=== PATIENT | male | born 1955 | race American Indian/Alaskan Native ===

== ENCOUNTER 2016-07-25 17:38 | Emergency (ER) | payer MEDICARE ==
[2016-07-25 18:12] VITALS: BP 125/75
--- NOTE | 2016-07-25 18:15 | Emergency Department Report ---
Chief Complaint: Pain General Stated Complaint: SEVERE RECTAL PAIN POSS INFECTION Time Seen by Provider: 07/25/16 18:11 - HPI History of Present Illness: PT c/o rectal pain x 1 week. Pt states his told him that he has a swollen area. PT states the pain is swelling - ROS Review of Systems: + rectal pain + nausea - fever - Exam Vital Signs: Vital Signs 07/25/16 18:02 Temperature 99.0 F Pulse Rate 80 Respiratory 20 Rate Blood Pressure 125/75 O2 Sat by Pulse 96 Oximetry Physical Exam: pt looks well, non toxic area of pain not evaluated in triage MSE screening note: Focused history and physical exam performed. Due to findings the following was ordered: labs ED Disposition for MSE Condition: Stable
[2016-07-25 18:46] LABS: Bilirubin,Urine NEG (Negative); Blood,Urine NEG (Negative); Ketones,Urine NEG (Negative); Leukocyte Esterase,Urine NEG (Negative); Mucus,Urine FEW /HPF; Nitrite,Urine NEG (Negative); Protein,Urine <15 mg/dL mg/dL (Negative); Urobilinogen,Urine < 2.0 mg/dL (<2.0)
--- NOTE | 2016-07-26 17:46 | ED Elopement Review ---
ED Pt Elopement review - Results review Lab results: Laboratory Tests 07/25/16 18:17 Urine Color Yellow Urine Turbidity Clear Urine pH 6.0 Ur Specific [place] 1.025 Urine Protein <15 mg/dl Urine Glucose (UA) Neg Urine Ketones Neg Urine Blood Neg Urine Nitrite Neg Urine Bilirubin Neg Urine Urobilinogen < 2.0 Ur Leukocyte Esterase Neg Urine WBC (Auto) 1.0 Urine RBC (Auto) 3.0 U Epithel Cells (Auto) < 1.0 Urine Mucus Few - Call Back decision Pt Call Back Decision: No action required
== END 2016-07-25 19:10 | disposition left against medical advice (07) ==
LOC: ED 17:38
DX: R10.2 Pelvic and perineal pain (principal); K62.89 Other specified diseases of anus and rectum; Z53.21 Procedure and treatment not carried out due to patient leaving prior to being seen by health care provider
CPT/HCPCS: 81001

== ENCOUNTER 2016-10-31 12:29 | Emergency (ER) | payer OTHER, MEDICARE ==
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
[2016-10-31 16:09] VITALS: BP 126/78
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
== END 2016-10-31 16:52 | disposition home or self-care (01) ==
LOC: ED 12:29
DX: S16.1XXA Strain of muscle, fascia and tendon at neck level, initial encounter (principal); M51.36 Other intervertebral disc degeneration, lumbar region; S39.012A Strain of muscle, fascia and tendon of lower back, initial encounter; V40.0XXA Car driver injured in collision with pedestrian or animal in nontraffic accident, initial encounter; Y93.89 Activity, other specified; Y99.8 Other external cause status; Y92.488 Other paved roadways as the place of occurrence of the external cause; Z88.0 Allergy status to penicillin
CPT/HCPCS: 72040; 72100; 99283

== ENCOUNTER 2017-09-17 07:31 | Observation (INO) | payer MEDICARE ==
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
--- NOTE | 2017-09-17 08:23 | XRay Report ---
AP CHEST: HISTORY: Dyspnea Mild cardiomegaly and pulmonary venous congestion are identified which have increased since 02/05/15. Single lead pacemaker device terminates in the right ventricle which is unchanged. The lungs are clear. No evidence for pneumonia, CHF or pneumothorax. IMPRESSION: Mild cardiomegaly and pulmonary venous congestion.
[2017-09-17 08:43] LABS: Basophils % (Auto) 0.2 % (0.0-1.8); Eosinophils % (Auto) 0.5 % (0.0-4.3); Hematocrit 39.7 % (35.5-45.6); Hemoglobin 13.3 gm/dl (11.8-15.2); Lymphocytes % (Auto) 26.7 % (13.4-35.0); Mean Corpuscular HGB Conc 34 % (32-34); Mean Corpuscular Hemoglobin 28 pg (28-32); Mean Corpuscular Volume 82 fl (84-94); Monocytes # (Auto) 0.3 K/mm3 (0.0-0.8); Monocytes % (Auto) 3.7 % (0.0-7.3); Platelet Count 205 K/mm3 (140-440); Red Blood Count 4.86 M/mm3 (3.65-5.03); Red Cell Distribution Width 15.7 % (13.2-15.2)
[2017-09-17 08:51] LABS: Creatine Kinase MB 2.8 ng/mL (0.0-4.0)
[2017-09-17 08:53] LABS: INR 0.95 (0.87-1.13)
[2017-09-17 08:54] LABS: Alanine Aminotransferase 13 units/L (7-56); Albumin 3.6 g/dL (3.9-5); BUN/Creatinine Ratio 18; Blood Urea Nitrogen 22 mg/dL (9-20); Hemolysis Index 17; Partial Thromboplastin Time 31.5 Sec. (24.2-36.6)
[2017-09-17] MEDS ORDERED: D50W (25GM) Syringe IV PRN (11:41)
[2017-09-17] MEDS ORDERED: MORPHINE IV PRN (11:47)
[2017-09-17] MEDS ORDERED: PROVENTIL IH PRN (11:47)
[2017-09-17] MEDS ORDERED: ZOFRAN IV PRN (11:47)
[2017-09-17] MEDS ORDERED: NORCO 5/325 PO PRN (11:47)
[2017-09-17] MEDS ORDERED: TYLENOL PO PRN (11:47)
[2017-09-17] MEDS ORDERED: NITROSTAT SL PRN (11:48)
[2017-09-17] MEDS ORDERED: LASIX IV SCH (12:00)
--- NOTE | 2017-09-17 12:01 | History and Physical Report ---
History of Present Illness Date of examination: 09/17/17 Chief complaint: SOB and CP History of present illness: Mr. Singh is a 61 yo yo man with a history of dm type 2, htn, dlp, oa neck/ back, chf with cmp s/p AICD, bph, asthma, marylu w/o cpap and prostate cancer s/p xrt 2015 who presents with sudden onset of acute severe constant sob this morning around 5:30am while going to the bathroom associated with substernal severe nonradiating chest tighness with nonproductive cough. He used an inhaler and took one old prednisone tablet which made chest worse. There is no aggravating factors but the ntg given by EMS did help ease the chest pains. The chest pains lasted more than 1 hours and had resolved when he arrived to the ED. PCP is Dr. Med Cool, affiliated with [facility] in [place], [place]. Wire Frame Dipper is Dr. Montiel. Stess test was 1 year ago. Cardiac cath was back in 2014 before AICD implanted. Interesting to note, he tells me that his heart problem started in 2009 after cpap mask was contaminated leading to heart troubles and ICU admission. PMH: as hpi PSH: aicd, cardiac cath SH: never tob smoker, no etoh or illegal drugs, former garbage truck helper, at bedside FH: father had dm, hypertension and age 56yo which maybe have been heart related per pt Mother in 1972 due to scarlet fever ROS: Constitutional: + fever of 100.4 last week ENT: denies: throat +chronic neck pains Respiratory: + cough, shortness of breath Cardiovascular: + chest pain Endocrine: denies unexplained weight loss or gain Gastrointestinal: denies: abdominal pain, nausea Genitourinary: denies: dysuria +polyuria Rectal: denies no incontinence, no bleeding, no itching, no discharge Musculoskeletal: denies swelling, myaglia, muscle weakness Skin: denies: rash except chronic nodules on back Neurological: denies: headache Hematological/Lymphatic: denies: easy bleeding or easy bruising Allergic/Immunologic: no urticaria, no allergic rhinitis, no anaphylaxis Psych: denies sadness or hopelessness, SI/HI Medications and Allergies Allergies Allergy/AdvReac Type Severity Reaction Status Date / Time penicillin AdvReac Rash Verified 07/25/15 10:42 Home Medications Medication Instructions Recorded Confirmed Last Taken Type Aspirin [Aspirin BABY CHEW TAB] 81 mg PO QDAY 10/27/14 09/17/17 09/16/17 History Carvedilol [Coreg] 12.5 mg PO DAILY 10/27/14 09/17/17 09/16/17 History Spironolactone 25 mg PO DAILY 10/27/14 09/17/17 09/16/17 History Tamsulosin [Flomax] 0.8 mg PO QDAY 10/27/14 09/17/17 09/16/17 History glipiZIDE [Glucotrol] 10 mg PO BID 10/27/14 09/17/17 09/16/17 History Aspirin [Aspirin EC] 81 mg PO DAILY 09/17/17 09/17/17 09/16/17 History Lisinopril [Zestril TAB] 40 mg PO QDAY 09/17/17 09/17/17 09/16/17 History Mirabegron [Myrbetriq] 25 mg PO QDAY 09/17/17 09/17/17 09/16/17 History Active Meds: Active Medications Acetaminophen (Tylenol) 650 mg PO Q6H PRN PRN Reason: Non Cardiac Pain or Temp>100.5 Acetaminophen/Hydrocodone Bitart ([place] 5/325) 1 each PO Q4H PRN PRN Reason: Pain, Moderate (4-6) Albuterol (Proventil) 2.5 mg IH Q4HRT PRN PRN Reason: Shortness Of Breath Aspirin (Baby Aspirin) 81 mg PO QDAY [facility] Carvedilol (Coreg) 12.5 mg PO DAILY [facility] Dextrose (D50w (25gm) Syringe) 50 ml IV PRN PRN PRN Reason: Hypoglycemia Furosemide (Lasix) 40 mg IV QDAY [facility] Heparin Sodium (Porcine) (Heparin) 5,000 unit SUB-Q Q8HR [facility] Insulin Human Lispro (Humalog) 0 unit SUB-Q ACHS ISH; Protocol Lisinopril (Zestril) 40 mg PO QDAY [facility] Miscellaneous Medication (Mirabegron [Myrbetriq]) 25 mg PO QDAY [facility] Morphine Sulfate (Morphine) 2 mg IV Q4H PRN PRN Reason: Pain , Severe (7-10) Nitroglycerin (Nitrostat) 0.4 mg SL .Q5MIN PRN PRN Reason: Chest Pain Ondansetron HCl (Zofran) 4 mg IV Q4H PRN PRN Reason: Nausea And Vomiting Pantoprazole Sodium (Protonix) 40 mg PO QDAY [facility] Spironolactone (Aldactone) 25 mg PO DAILY [facility] Tamsulosin HCl (Flomax) 0.8 mg PO QDAY [facility] Exam - Physical Exam Narrative exam: GEN: WDWN, NAD, Awake, Alert, Orientated x 3 HEENT: NCAT, EOMI, PERRL, OP Clear NECK: supple, no adenopathy, no thyromegaly, no JVD CVS/HEART: RRR, normal S1S2, pulses present bilaterally CHEST/LUNGS: diminished, bilateral crackles with rhonchi, Symmetrical chest expansion, good air entry bilaterally GI/Abdomen: soft, NTND, good bowel sounds, no guarding or rebound /Bladder: no suprapubic tenderness, no CVA or paraspinal tenderness EXT/Skin: no c/c/e, no obvious rash, nickel size nodule/cyst like structure x 2 on upper back which are nontender, slightly moveable MSK: FROM x 4 Neuro: CN 2-12 grossly intact, no new focal deficits Psych: calm - Constitutional Vitals: Temp Pulse Resp BP Pulse Ox 98.6 F 99 H 18 140/85 93 09/17/17 08:04 09/17/17 08:04 09/17/17 08:05 09/17/17 08:04 09/17/17 08:05 Results - Labs CBC & Chem 7: 09/17/17 08:08 09/17/17 08:08 Labs: Abnormal lab results 09/17/17 09/17/17 09/17/17 Range/Units 08:08 08:08 08:08 MCV 82 L (84-94) fl RDW 15.7 H (13.2-15.2) % BUN 22 H (9-20) mg/dL Glucose 171 H (75-100) mg/dL Lactic Acid 2.90 H* (0.7-2.0) mmol/L Total Creatine Kinase 256 H (55-170) units/L NT-Pro-B Natriuret Pep (0-900) pg/mL Albumin 3.6 L (3.9-5) g/dL 09/17/17 Range/Units 08:08 MCV (84-94) fl RDW (13.2-15.2) % BUN (9-20) mg/dL Glucose (75-100) mg/dL Lactic Acid (0.7-2.0) mmol/L Total Creatine Kinase (55-170) units/L NT-Pro-B Natriuret Pep 3092 H (0-900) pg/mL Albumin (3.9-5) g/dL Assessment and Plan Mr. Singh is a 61 yo yo man with a history of dm type 2, htn, dlp, oa neck/ back, chf with cmp s/p AICD, bph, asthma, marylu w/o cpap and prostate cancer s/p xrt 2015 who presents with SOB and substernal CP. CXR reported mild cardiomegaly and pulmonary vascular congestion -Acute on chronic systolic heart failure: treat with iv lasix, consult cardiology -Chest pains: ?stress test, will defer to Cardiology, treat with asa/statin/ bblocker and ntg -Suspected Acute hypoxic respiratory failure: continue 2l Oxygen -Type 2 DM: ssi, ada diet, hold sulfylurea pending npo status -Asthma exacerbation: albuterol nebs, hold steroids until ok with Cardiology -DVT prophylaxis: scd and sq heparin
--- NOTE | 2017-09-17 13:32 | Consultation ---
History of Present Illness Consult date: 09/17/17 Requesting physician: MARLENY SANDERS Consult reason: chest pain, known to you History of present illness: The pt is a 61 YO male with a past medical history significant for nonobstructive CAD, cardiomyopathy, AICD in situ, HTN, DM, CKD, prostate cancer s/p radiation. He is followed in our office by Dr. Frank Montiel. He presented with complaints of shortness of breath and dizziness and chest pain. He reports that he was climbing a flight of stairs this morning and that is when he noted his symptoms develop. He almost did not reach the top of the stairs due to his symptoms and felt as though he may "pass out". He sat down and experienced a minimal amount of improvement in his symptoms and his called EMS. He describes his chest pain as a constant midsternal pressure. He reports that his chest pain improved after he received ASA 325mg and SL nitro while en route to ED. On evaluation, he denies any current chest pain. Pt reports that he has been experiencing flu-like symptoms since last Thursday. He denies any palpitations, n/v, diaphoresis or syncope. Echo done 07/2014 showed EF 25-30%, LV mod dilated, LA mildly enlarged. LHC done 08/2014 showed 40% distal LM lesion and 60% proximal LAD stenosis. Both lesions were assessed using FFR with IV Adenosine and were deemed to be hemodynamically insignificant with a combined FFR across both lesions of 0.85, LVEDP elevated at 27 mmHg and ejection fraction of 20% with dilated LV and moderate to severe global hypokinesis. Past History Past Medical History: CAD (nonobstructive), diabetes, hypertension, other (CKD; CMP; prostate CA ) Social history: , lives with family. denies: smoking, alcohol abuse, prescription drug abuse Medications and Allergies Allergies Allergy/AdvReac Type Severity Reaction Status Date / Time penicillin AdvReac Rash Verified 07/25/15 10:42 Home Medications Medication Instructions Recorded Confirmed Last Taken Type Aspirin [Aspirin BABY CHEW TAB] 81 mg PO QDAY 10/27/14 09/17/17 09/16/17 History Carvedilol [Coreg] 12.5 mg PO DAILY 10/27/14 09/17/17 09/16/17 History Spironolactone 25 mg PO DAILY 10/27/14 09/17/1709/16/18 History Tamsulosin [Flomax] 0.8 mg PO QDAY 10/27/14 09/17/17 09/16/17 History glipiZIDE [Glucotrol] 10 mg PO BID 10/27/14 09/17/17 09/16/17 History Aspirin [Aspirin EC] 81 mg PO DAILY 09/17/17 09/17/17 09/16/17 History Lisinopril [Zestril TAB] 40 mg PO QDAY 09/17/17 09/17/17 09/16/17 History Mirabegron [Myrbetriq] 25 mg PO QDAY 09/17/17 09/17/17 09/16/17 History Active Meds: Active Medications Acetaminophen (Tylenol) 650 mg PO Q6H PRN PRN Reason: Non Cardiac Pain or Temp>100.5 Acetaminophen/Hydrocodone Bitart ([place] 5/325) 1 each PO Q4H PRN PRN Reason: Pain, Moderate (4-6) Albuterol (Proventil) 2.5 mg IH Q4HRT PRN PRN Reason: Shortness Of Breath Aspirin (Baby Aspirin) 81 mg PO QDAY [facility] Atorvastatin Calcium (Lipitor) 40 mg PO QHS [facility] Carvedilol (Coreg) 12.5 mg PO DAILY [facility] Dextrose (D50w (25gm) Syringe) 50 ml IV PRN PRN PRN Reason: Hypoglycemia Furosemide (Lasix) 40 mg IV DAILY@0600 [facility] Heparin Sodium (Porcine) (Heparin) 5,000 unit SUB-Q Q8HR [facility] Insulin Human Lispro (Humalog) 0 unit SUB-Q ACHS ISH; Protocol Lisinopril (Zestril) 40 mg PO QDAY [facility] Miscellaneous Medication (Mirabegron [Myrbetriq]) 25 mg PO QDAY [facility] Morphine Sulfate (Morphine) 2 mg IV Q4H PRN PRN Reason: Pain , Severe (7-10) Nitroglycerin (Nitrostat) 0.4 mg SL .Q5MIN PRN PRN Reason: Chest Pain Ondansetron HCl (Zofran) 4 mg IV Q4H PRN PRN Reason: Nausea And Vomiting Pantoprazole Sodium (Protonix) 40 mg PO QDAY [facility] Spironolactone (Aldactone) 25 mg PO DAILY [facility] Tamsulosin HCl (Flomax) 0.8 mg PO QDAY [facility] Review of Systems Constitutional: no weight loss, no weight gain Ears, nose, mouth and throat: no ear pain, no nose pain Cardiovascular: chest pain, lightheadedness, shortness of breath, dyspnea on exertion, high blood pressure, no orthopnea, no palpitations, no rapid/ irregular heart beat, no edema, no syncope Respiratory: cough, shortness of breath, dyspnea on exertion, no congestion, no wheezing, no pain on inspiration Gastrointestinal: no abdominal pain, no nausea, no vomiting, no diarrhea, no constipation, no change in bowel habits Genitourinary Male: no dysuria, no hematuria, no flank pain, no discharge, no urinary frequency, no urinary hesitancy Musculoskeletal: no neck stiffness, no neck pain, no shooting arm pain, no arm numbness/tingling, no low back pain, no shooting leg pain, no leg numbness/ tingling, no redness of joints Integumentary: no rash, no pruritis, no redness, no sores, no wounds Neurological: no head injury, no paralysis, no weakness, no parathesias, no numbness, no tingling, no seizures, no syncope Psychiatric: no anxiety Endocrine: no cold intolerance, no heat intolerance Hematologic/Lymphatic: no easy bruising, no easy bleeding, no lymphadenopathy Allergic/Immunologic: no urticaria, no wheezing, no persistent infections Physical Examination Vital Signs Temp Pulse Resp BP Pulse Ox 98.6 F 99 H 18 140/85 94 09/17/17 08:04 09/17/17 08:04 09/17/17 08:04 09/17/17 08:04 09/17/17 08:04 General appearance: no acute distress HEENT: Positive: PERRL, Normocephaly, Mucus Membranes Moist Neck: Positive: neck supple, trachea midline Cardiac: Positive: Reg Rate and Rhythm, S1/S2 Lungs: Positive: Wheezes Abdomen: Positive: Soft. Negative: Tender Skin: Positive: Clear. Negative: Rash, Wound Musculoskeletal: No Fluid Collection, No Pain, Normal Range of Motion Extremities: Absent: edema Results 09/17/17 08:08 09/17/17 08:08 Cardiac Enzymes 09/17/17 Range/Units 08:08 AST 13 (5-40) units/L CK-MB (CK-2) 2.8 (0.0-4.0) ng/mL Coagulation 09/17/17 Range/Units 08:08 PT 13.2 (12.2-14.9) Sec. INR 0.95 (0.87-1.13) APTT 31.5 (24.2-36.6) Sec. CBC 09/17/17 Range/Units 08:08 WBC 7.6 (4.5-11.0) K/mm3 RBC 4.86 (3.65-5.03) M/mm3 Hgb 13.3 (11.8-15.2) gm/dl Hct 39.7 (35.5-45.6) % Plt Count 205 (140-440) K/mm3 Lymph # 2.0 (1.2-5.4) K/mm3 [place] # 0.3 (0.0-0.8) K/mm3 Eos # 0.0 (0.0-0.4) K/mm3 Baso # 0.0 (0.0-0.1) K/mm3 Comprehensive Metabolic Panel 09/17/17 Range/Units 08:08 Sodium 141 (137-145) mmol/L Potassium 3.8 (3.6-5.0) mmol/L Chloride 105.7 (98-107) mmol/L Carbon Dioxide 27 (22-30) mmol/L BUN 22 H (9-20) mg/dL Creatinine 1.2 (0.8-1.5) mg/dL Glucose 171 H (75-100) mg/dL Calcium 9.0 (8.4-10.2) mg/dL AST 13 (5-40) units/L ALT 13 (7-56) units/L Alkaline Phosphatase 64 (35-129) units/L Total Protein 6.7 (6.3-8.2) g/dL Albumin 3.6 L (3.9-5) g/dL - Imaging and Cardiology Echo: report reviewed (07/2014 showed EF 25-30%, LV mod dilated, LA mildly enlarged.) Cardiac cath: report reviewed (08/2014 showed 40% distal LM lesion and 60% proximal LAD stenosis. Both lesions were assessed using FFR with IV Adenosine and were deemed to be hemodynamically insignificant with a combined FFR across both lesions of 0.85, LVEDP elevated at 27 mmHg and ejection fraction of 20% with dilated LV and moderate to severe global hypokinesis.) EKG: report reviewed, image reviewed EKG interpretations - Telemetry EKG Rhythm: Sinus Rhythm - EKG Sinus rhythms and dysrhythmias: sinus rhythm Repolarization changes or abnormalities: nonspecific abnormality, ST segment, and/or T wave Assessment and Plan Agree with current cardiac regimen. Obtain echo. Plan for lexiscan MPI stress test in AM. NPO after MN. The patient has been seen in conjunction with Dr. Mcmahon who agrees with the assessment and plan of care. - Patient Problems (1) Chest pain Current Visit: Yes Status: Acute Qualifiers: Chest pain type: unspecified Qualified Code(s): R07.9 - Chest pain, unspecified (2) Acute systolic heart failure Current Visit: Yes Status: Acute (3) CAD (coronary artery disease) Current Visit: Yes Status: Chronic (4) Cardiomyopathy Current Visit: Yes Status: Chronic (5) Automatic implantable cardioverter-defibrillator in situ Current Visit: Yes Status: Chronic (6) HTN (hypertension) Current Visit: Yes Status: Chronic (7) Diabetes Current Visit: Yes Status: Chronic (8) CKD (chronic kidney disease) Current Visit: Yes Status: Chronic (9) History of prostate cancer Current Visit: Yes Status: Resolved
[2017-09-17] MEDS: HumaLOG SUB-Q SCH ×2 (17:46→22:31)
[2017-09-18] MEDS ORDERED: MAGNESIUM SULFATE 1 GM in NACL 0.9% 50 ML IV ONE (05:12)
[2017-09-18] MEDS ORDERED: LASIX IV SCH (06:00)
[2017-09-18 07:04] LABS: Hematocrit 36.8 % (35.5-45.6); Hemoglobin 12.1 gm/dl (11.8-15.2); Mean Corpuscular HGB Conc 33 % (32-34); Mean Corpuscular Hemoglobin 27 pg (28-32); Mean Corpuscular Volume 81 fl (84-94); Platelet Count 217 K/mm3 (140-440); Red Blood Count 4.53 M/mm3 (3.65-5.03); Red Cell Distribution Width 15.8 % (13.2-15.2)
[2017-09-18 07:29] LABS: BUN/Creatinine Ratio 19; Blood Urea Nitrogen 21 mg/dL (9-20); Calcium 8.5 mg/dL (8.4-10.2); Chol/HDL Ratio 4.34 %; HDL Cholesterol 41 mg/dL (40-59); Hemolysis Index 3; LDL Cholesterol,Direct 129 mg/dL (50-130)
[2017-09-18] MEDS: HumaLOG SUB-Q SCH (07:53)
[2017-09-18] MEDS ORDERED: LEXISCAN IV ONE ×2 (09:26→09:31)
[2017-09-18] MEDS ORDERED: COREG PO SCH (10:00)
[2017-09-18] MEDS ORDERED: K-DUR PO SCH (10:00)
[2017-09-18] MEDS ORDERED: IMDUR PO SCH (10:00)
[2017-09-18] MEDS ORDERED: BABY ASPIRIN PO SCH (10:00)
[2017-09-18] MEDS ORDERED: ALDACTONE PO SCH (10:00)
[2017-09-18] MEDS ORDERED: ZESTRIL PO SCH (10:00)
[2017-09-18] MEDS ORDERED: NON-FORMULARY (Mirabegron [Myrbetriq] 25 MG) PO SCH (10:00)
[2017-09-18] MEDS ORDERED: PROTONIX PO SCH (10:00)
[2017-09-18] MEDS ORDERED: HEPARIN SUB-Q SCH (14:00)
--- NOTE | 2017-09-18 14:33 | Progress Note ---
Assessment and Plan Cardiac status is stable. He should f/u at our office in 1-2 wks. - Patient Problems (1) Acute HFrEF (heart failure with reduced ejection fraction) Current Visit: Yes Status: Acute (2) CAD (coronary artery disease) Current Visit: Yes Status: Chronic Qualifiers: Coronary Disease-Associated Artery/Lesion type: [place] artery (3) Nonsustained ventricular tachycardia Current Visit: Yes Status: Acute (4) Cardiomyopathy Current Visit: Yes Status: Chronic (5) Automatic implantable cardioverter-defibrillator in situ Current Visit: Yes Status: Chronic (6) HTN (hypertension) Current Visit: Yes Status: Chronic (7) Diabetes Current Visit: Yes Status: Chronic Qualifiers: Diabetes mellitus type: type 2 Subjective Date of service: 09/18/17 Principal diagnosis: CP, Acute HFrEF, CAD, CMP, ICD in situ Interval history: No new complaint. He feels fine. He had a Lexiscan stress MPI this morning which was negative for ischemia. He had brief runs of Nonsustained VT during the night. Objective Vital Signs Temp Pulse Resp BP BP Pulse Ox 09/18/17 13:09 93 H 139/79 88 09/18/17 12:21 94 H 145/94 09/18/17 12:20 94 H 145/94 09/18/17 09:53 99 H 150/93 09/18/17 09:52 99 H 146/89 09/18/17 09:51 97 H 150/93 09/18/17 09:50 98 H 142/89 09/18/17 09:49 108 H 157/101 09/18/17 09:48 112 H 158/98 09/18/17 09:33 84 152/96 09/18/17 08:02 97.9 F 94 H 18 147/99 91 09/18/17 05:49 98.3 F 09/18/17 05:28 88 127/87 96 09/18/17 04:00 90 09/18/17 01:09 98.5 F 91 H 20 129/80 96 09/17/17 22:00 20 96 09/17/17 20:15 89 97 09/17/17 20:04 97 H 09/17/17 19:55 98.4 F 89 18 149/88 96 09/17/17 16:54 98.6 F 91 H 18 138/87 96 09/17/17 16:38 151/94 79 L 09/17/17 16:10 84 16 151/94 95 09/17/17 16:06 93 H 16 151/94 09/17/17 15:20 95 H 18 151/94 95 18 15:10 94 H 17 151/94 95 09/17/17 15:00 92 H 16 151/94 96 09/17/17 14:50 95 H 22 171/105 96 09/17/17 14:40 90 15 171/105 96 09/17/17 14:30 95 H 17 171/105 96 - Physical Examination General: No Apparent Distress HEENT: Positive: EOMI, Normocephaly, Mucus Membranes Moist Neck: Positive: neck supple, trachea midline Cardiac: Positive: Reg Rate and Rhythm, S1/S2 Lungs: Positive: clear to auscultation Neuro: Positive: Grossly Intact Abdomen: Positive: Soft, Active Bowel Sounds. Negative: Tender Skin: Positive: Clear. Negative: Rash Musculoskeletal: Normal Range of Motion Extremities: Present: normal. Absent: edema - Labs and Meds Lipids 09/18/17 Range/Units 06:34 Triglycerides 97 (2-149) mg/dL Cholesterol 178 (50-199) mg/dL HDL Cholesterol 41 (40-59) mg/dL Cholesterol/HDL Ratio 4.34 % CBC 09/18/17 Range/Units 06:34 WBC 7.7 (4.5-11.0) K/mm3 RBC 4.53 (3.65-5.03) M/mm3 Hgb 12.1 (11.8-15.2) gm/dl Hct 36.8 (35.5-45.6) % Plt Count 217 (140-440) K/mm3 Comprehensive Metabolic Panel 09/18/17 Range/Units 06:34 Sodium 143 (137-145) mmol/L Potassium 3.5 L (3.6-5.0) mmol/L Chloride 103.9 (98-107) mmol/L Carbon Dioxide 26 (22-30) mmol/L BUN 21 H (9-20) mg/dL Creatinine 1.1 (0.8-1.5) mg/dL Glucose 141 H (75-100) mg/dL Calcium 8.5 (8.4-10.2) mg/dL - Imaging and Cardiology EKG: report reviewed, image reviewed Echo: report reviewed (07/2014 showed EF 25-30%, LV mod dilated, LA mildly enlarged.) Cardiac cath: report reviewed (08/2014 showed 40% distal LM lesion and 60% proximal LAD stenosis. Both lesions were assessed using FFR with IV Adenosine and were deemed to be hemodynamically insignificant with a combined FFR across both lesions of 0.85, LVEDP elevated at 27 mmHg and ejection fraction of 20% with dilated LV and moderate to severe global hypokinesis.) - EKG Ventricular dysrhythmias: non-sustained ventricular Repolarization changes or abnormalities: nonspecific abnormality, ST segment, and/or T wave
--- NOTE | 2017-09-18 14:55 | Discharge Summary ---
Providers - Providers Date of Admission: 09/17/17 09:51 Date of discharge: 09/18/17 Attending physician: MARLENY SANDERS 09/17/17 11:36 Consult to Physician [CONS] Routine Comment: CHANDRAKANT AWARE OF PT 1215 Consulting Provider: OUSMANE FARIAS Physician Instructions: Reason For Exam: chest pain, pt known to your group Primary care physician: SANDRA GUO Hospitalization Condition: Stable Hospital course: Mr. Singh is a 61 yo yo man with a history of dm type 2, htn, dlp, oa neck/ back, chf with cmp s/p AICD, bph, asthma, marylu w/o cpap and prostate cancer s/p xrt 2015 who presents with SOB and substernal CP. CXR reported mild cardiomegaly and pulmonary vascular congestion -Acute on chronic systolic heart failure: treat with iv lasix, consult cardiology -Chest pains, atypical, related to CHF: stress test, will defer to Cardiology, treat with asa/statin/bblocker and ntg -Suspected Acute hypoxic respiratory failure: continue 2l Oxygen -Type 2 DM: ssi, ada diet, hold sulfylurea pending npo status -Asthma exacerbation: albuterol nebs, hold steroids until ok with Cardiology -DVT prophylaxis: scd and sq heparin Disposition: DC-01 TO HOME OR SELFCARE Time spent for discharge: 36 minutes Core Measure Documentation - Palliative Care Palliative Care/ Comfort Measures: Not Applicable - Core Measures Any of the following diagnoses?: heart failure - VTE Discharge Requirements Deep Vein Thrombosis/Pulmonary Embolism Present on Admission: No Has pt received <5 days of overlap therapy or INR<2.0: No Anticoagulant overlap therapy prescribed at discharge: No Contraindication No Overlap Therapy order at DC: Not Indicated - Heart Failure Discharge Requirements JEAN/ARB for LVSD if EF <40%: Yes Beta jean at discharge: Yes Exam - Physical Exam Narrative exam: GEN: WDWN, NAD, Awake, Alert, Orientated x 3 HEENT: NCAT, EOMI, PERRL, OP Clear NECK: supple, no adenopathy, no thyromegaly, no JVD CVS/HEART: RRR, normal S1S2, pulses present bilaterally CHEST/LUNGS: diminished, bilateral crackles with rhonchi, Symmetrical chest expansion, good air entry bilaterally GI/Abdomen: soft, NTND, good bowel sounds, no guarding or rebound /Bladder: no suprapubic tenderness, no CVA or paraspinal tenderness EXT/Skin: no c/c/e, no obvious rash, nickel size nodule/cyst like structure x 2 on upper back which are nontender, slightly moveable MSK: FROM x 4 Neuro: CN 2-12 grossly intact, no new focal deficits Psych: calm - Constitutional Vitals: Temp Pulse Resp BP Pulse Ox 97.9 F 93 H 18 139/79 88 09/18/17 08:02 09/18/17 13:09 09/18/17 08:02 09/18/17 13:09 09/18/17 13:09 Plan Activity: other (no strenous activity until cleared by pcp) Diet: low salt Additional Instructions: please call for the first available appointment with Dr. Farias or his PA Follow up with: PRIMARY CARE, [Referring] - 3-5 Days JACKIE FARIAS MD [Staff Physician] - 7 Days Prescriptions: AtorvaSTATin [Lipitor] 40 mg PO QHS #30 tablet Carvedilol [Coreg] 12.5 mg PO DAILY #30 tablet HYDROcodone/APAP 5-325 [[place] 5-325 mg TAB] 1 each PO Q4H PRN #12 tablet PRN Reason: Pain , Severe (7-10) ISOSORBIDE MONOnitrate [Imdur ER] 30 mg PO QDAY #30 tablet
[2017-09-18 18:04] VITALS: BP 119/77
--- NOTE | 2017-09-18 19:13 | Treadmill Report ---
PROCEDURE: Nuclear perfusion study. REASON FOR STUDY: Shortness of breath and chest pain. IMAGING PROTOCOL: The patient received 10 mCi of Technetium 99m Tetrofosmin for resting image and 28 mCi of Technetium 99m Tetrofosmin for stress imaging. The imaging for the whole procedure was completed 30-90 minutes following the initial injection of Technetium 99m tetrofosmin. The SPECT imaging in the 180 degree arc was performed in the right anterior oblique projection. Computerized reconstruction of the images was performed for analysis. IMAGING RESULTS: The cavity is dilated on both stress and rest. Distribution of radionuclide is normal in the septal, lateral; mildly decreased in the inferoapical region and mild decreased both in rest and stress in the mid inferior region. Gated SPECT, EF 21%. The patient infused Lexiscan with no EKG changes. SUMMARY: 1. Negative Lexiscan EKG. 2. No significant ischemia. 3. Dilated LV with severe LV dysfunction, EF 21% with fixed inferior defect. JOB# [id number] TUCKER/KERRIE
[2017-09-18] MEDS ORDERED: FLOMAX PO SCH (20:00)
== END 2017-09-18 19:00 | disposition home or self-care (01) ==
LOC: ED 07:31 → 4A 09:51 → INTOOBSV 09:51 → 4A 15:05
PROVIDERS: ADMIT Internal Medicine; ATTEND Internal Medicine
DX: I13.0 Hypertensive heart and chronic kidney disease with heart failure and stage 1 through stage 4 chronic kidney disease, or unspecified chronic kidney disease (principal); I50.23 Acute on chronic systolic (congestive) heart failure; N18.9 Chronic kidney disease, unspecified; I51.7 Cardiomegaly; J45.901 Unspecified asthma with (acute) exacerbation; I42.9 Cardiomyopathy, unspecified; E11.22 Type 2 diabetes mellitus with diabetic chronic kidney disease; I25.10 Atherosclerotic heart disease of native coronary artery without angina pectoris; E78.5 Hyperlipidemia, unspecified; Z88.0 Allergy status to penicillin; Z82.49 Family history of ischemic heart disease and other diseases of the circulatory system; Z90.49 Acquired absence of other specified parts of digestive tract; Z95.810 Presence of automatic (implantable) cardiac defibrillator; Z85.46 Personal history of malignant neoplasm of prostate
CPT/HCPCS: 36415; 71045; 78452; 80048; 80053; 80061; 82140; 82550; 82553; 82962; 83735; 83880; 84443; 84484; 85025; 85027; 85379; 85610; 85730; 93005; 93010; 93017; 93306; 96365; 96372; 96375; 99291; A9270; A9502; G0378; J1644; J1940; J2785; J3475; J1815

== ENCOUNTER 2018-01-29 10:07 | Inpatient (IN) | payer MEDICARE ==
[2018-01-29] MEDS ORDERED: ASPIRIN PO ONE (10:22)
[2018-01-29] MEDS ORDERED: LASIX IV ONE (10:38)
[2018-01-29] MEDS ORDERED: NITRO-BID 2% TP ONE (10:38)
--- NOTE | 2018-01-29 10:50 | Emergency Department Report ---
ED Chest Pain HPI - General Chief Complaint: Chest Pain Stated Complaint: SOB/FLUID AROUND HEART Time Seen by Provider: 01/29/18 10:38 Source: patient, family Mode of arrival: Ambulatory Limitations: No Limitations - History of Present Illness Initial Comments: Patient is a 62-year-old -[place] male with a past medical history of hypertension and diet-controlled heart failure who is presenting with chest heaviness and shortness of breath. Patient's states that 3 days ago the patient started complaining of some chest tightness that has been constant and also shortness of breath with exertion and with laying flat. The patient denies any leg swelling at this time. Patient was noted while laying flat and while walking to have a slight wheeze. The patient denies any fevers chills nausea vomiting diarrhea at this time. Patient is nondiaphoretic. Patient was taken off of his Lasix approximately 1 year ago because continue to take spironolactone. In chart review the patient did have a exercise stress test on 09/18/2017 that showed no significant ischemia present the patient did have a dilated left ventricle with severe LV dysfunction and EF of 20% with a fixed inferior defect - Related Data Home Medications Medication Instructions Recorded Confirmed Last Taken Spironolactone 25 mg PO DAILY 10/27/14 09/17/17 09/16/17 Tamsulosin [Flomax] 0.8 mg PO QDAY 10/27/14 09/17/17 09/16/17 Previous Rx's Medication Instructions Recorded Last Taken Type Acetaminophen [Acetaminophen TAB] 650 mg PO Q6H PRN #15 tablet 09/18/17 Unknown Rx Aspirin [Aspirin EC] 81 mg PO DAILY #30 09/18/17 09/16/17 Rx AtorvaSTATin [Lipitor] 40 mg PO QHS #30 tablet 09/18/17 Unknown Rx Carvedilol [Coreg] 12.5 mg PO DAILY #30 tablet 09/18/17 Unknown Rx HYDROcodone/APAP 5-325 [Gregory 1 each PO Q4H PRN #12 tablet 09/18/17 Unknown Rx 5-325 mg TAB] ISOSORBIDE MONOnitrate [Imdur ER] 30 mg PO QDAY #30 tablet 09/18/17 Unknown Rx Lisinopril [Zestril TAB] 40 mg PO QDAY #30 09/18/17 09/16/17 Rx Mirabegron [Myrbetriq] 25 mg PO QDAY #30 09/18/17 09/16/17 Rx glipiZIDE [Glucotrol] 10 mg PO BID #60 09/18/17 09/16/17 Rx Allergies Allergy/AdvReac Type Severity Reaction Status Date / Time penicillin AdvReac Rash Verified 07/25/15 10:42 Heart Score - HEART Score History: Moderately suspicious EKG: Non-specific Age: 45-65 Risk factors: 1-2 risk factors Troponin: < normal limit HEART Score: 4 ED Review of Systems ROS: Stated complaint: SOB/FLUID AROUND HEART Other details as noted in HPI Comment: All other systems reviewed and negative ED Past Medical Hx - Past Medical History Hx Hypertension: Yes (4YRS) Hx Congestive Heart Failure: Yes Hx Diabetes: Yes (4YRS) Hx Arthritis: Yes (LOWER BACK) Hx Asthma: Yes Additional medical history: BPH. HIGH CHOLESTEROL - Surgical History Hx Internal Defibrillator: Yes (09/2014) Hx Appendectomy: Yes ( A CHILD) - Social History Smoking Status: Never Smoker Substance Use Type: None - Medications Home Medications: Home Medications Medication Instructions Recorded Confirmed Last Taken Type Spironolactone 25 mg PO DAILY 10/27/14 09/17/17 09/16/17 History Tamsulosin [Flomax] 0.8 mg PO QDAY 10/27/14 09/17/17 09/16/17 History Acetaminophen [Acetaminophen TAB] 650 mg PO Q6H PRN #15 tablet 09/18/17 Unknown Rx Aspirin [Aspirin EC] 81 mg PO DAILY #30 09/18/17 09/17/17 09/16/17 Rx AtorvaSTATin [Lipitor] 40 mg PO QHS #30 tablet 09/18/17 Unknown Rx Carvedilol [Coreg] 12.5 mg PO DAILY #30 tablet 09/18/17 Unknown Rx HYDROcodone/APAP 5-325 [Gregory 1 each PO Q4H PRN #12 tablet 09/18/17 Unknown Rx 5-325 mg TAB] ISOSORBIDE MONOnitrate [Imdur ER] 30 mg PO QDAY #30 tablet 09/18/17 Unknown Rx Lisinopril [Zestril TAB] 40 mg PO QDAY #30 09/18/17 09/17/17 09/16/17 Rx Mirabegron [Myrbetriq] 25 mg PO QDAY #30 09/18/17 09/17/17 09/16/17 Rx glipiZIDE [Glucotrol] 10 mg PO BID #60 09/18/17 09/17/17 09/16/17 Rx ED Physical Exam - General Limitations: No Limitations General appearance: alert, in no apparent distress - Head Head exam: Present: atraumatic, normocephalic - Eye Eye exam: Present: normal appearance - ENT ENT exam: Present: mucous membranes moist - Neck Neck exam: Present: normal inspection - Respiratory Respiratory exam: Present: normal lung sounds bilaterally, wheezes, rales. Absent: respiratory distress, rhonchi, stridor, chest wall tenderness - Cardiovascular Cardiovascular Exam: Present: regular rate, normal rhythm. Absent: systolic murmur, diastolic murmur, rubs, gallop - GI/Abdominal GI/Abdominal exam: Present: soft, normal bowel sounds. Absent: distended, tenderness, guarding, rebound - Rectal Rectal exam: Present: deferred - Extremities Exam Extremities exam: Present: normal inspection. Absent: pedal edema, joint swelling - Back Exam Back exam: Present: normal inspection - Neurological Exam Neurological exam: Present: alert, oriented X3 - Psychiatric Psychiatric exam: Present: normal affect, normal mood - Skin Skin exam: Present: warm, dry, intact, normal color. Absent: rash ED Course Vital Signs 01/29/18 01/29/18 01/29/18 10:14 10:59 11:00 Temperature 97.8 F Pulse Rate 105 H 103 H 96 H Respiratory 14 16 Rate Blood Pressure 135/91 130/85 O2 Sat by Pulse 93 93 Oximetry 01/29/18 01/29/18 01/29/18 11:02 11:04 11:06 Temperature Pulse Rate 96 H 101 H 104 H Respiratory 21 16 15 Rate Blood Pressure 130/85 130/85 130/85 O2 Sat by Pulse 95 97 96 Oximetry 01/29/18 01/29/18 01/29/18 11:08 11:10 11:12 Temperature Pulse Rate 112 H 103 H 102 H Respiratory 22 18 13 Rate Blood Pressure 130/85 130/85 130/85 O2 Sat by Pulse 95 95 97 Oximetry 01/29/18 01/29/18 01/29/18 11:14 11:16 11:18 Temperature Pulse Rate 101 H 102 H 103 H Respiratory 17 24 25 H Rate Blood Pressure 130/85 130/85 130/85 O2 Sat by Pulse 95 94 95 Oximetry 01/29/18 01/29/18 01/29/18 11:20 11:22 11:24 Temperature Pulse Rate 98 H 97 H 97 H Respiratory 18 20 19 Rate Blood Pressure 130/85 130/85 130/85 O2 Sat by Pulse 95 96 95 Oximetry 01/29/18 01/29/18 11:26 11:28 Temperature Pulse Rate 99 H 95 H Respiratory 18 Rate Blood Pressure 130/85 135/85 O2 Sat by Pulse 97 Oximetry - Reevaluation(s) Reevaluation #1: 01/29/18 10:50After the initial examination of the patient patient was started on nitroglycerin for his chest discomfort as well as given 40 mg of Lasix. HEIDI score - Heidi Score Age > 65: (0) No Aspirin use within the Past 7 Days: (1) Yes 3 or more CAD Risk Factors: (0) No 2 or more Angina events in past 24 hrs: (1) Yes Known CAD with more than 50% Stenosis: (0) No Elevated Cardiac Markers: (0) No ST Deviation Greater than 0.5mm: (0) No HEIDI Score: 2 ED Medical Decision Making - Lab Data Result diagrams: 01/29/18 10:38 01/29/18 10:38 Lab Results 01/29/18 01/29/18 01/29/18 Range/Units 10:38 10:38 10:41 WBC 4.8 (4.5-11.0) K/mm3 RBC 4.93 (3.65-5.03) M/mm3 Hgb 13.6 (11.8-15.2) gm/dl Hct 40.6 (35.5-45.6) % MCV 82 L (84-94) fl MCH 28 (28-32) pg MCHC 33 (32-34) % RDW 15.9 H (13.2-15.2) % Plt Count 191 (140-440) K/mm3 Lymph % (Auto) 40.0 H (13.4-35.0) % [place] % (Auto) 6.9 (0.0-7.3) % Eos % (Auto) 1.2 (0.0-4.3) % Baso % (Auto) 0.3 (0.0-1.8) % Lymph # 1.9 (1.2-5.4) K/mm3 [place] # 0.3 (0.0-0.8) K/mm3 Eos # 0.1 (0.0-0.4) K/mm3 Baso # 0.0 (0.0-0.1) K/mm3 Seg Neutrophils % 51.6 (40.0-70.0) % Seg Neutrophils # 2.5 (1.8-7.7) K/mm3 Sodium 141 (137-145) mmol/L Potassium 3.8 (3.6-5.0) mmol/L Chloride 102.0 (98-107) mmol/L Carbon Dioxide 26 (22-30) mmol/L Anion Gap 17 mmol/L BUN 12 (9-20) mg/dL Creatinine 1.0 (0.8-1.5) mg/dL Estimated GFR > 60 ml/min BUN/Creatinine Ratio 12 % Glucose 290 H (75-100) mg/dL Calcium 9.3 (8.4-10.2) mg/dL Troponin T < 0.010 (0.00-0.029) ng/mL NT-Pro-B Natriuret Pep 2425 H (0-900) pg/mL - EKG Data -: EKG Interpreted by Me - EKG Data 01/29/18 10:50 EKG shows sinus rhythm rate of 96 SMALL intervals. There is left atrial enlargement present. There is no ST segment elevation or depressions. T waves do show some nonspecific changes most notably in V6 where there are flipped T waves present. Time of interpretation is 1035 - Radiology Data interpreted by me: Borderline cardiomegaly with probably vascular congestion and early pulmonary edema in the bilateral bases - Medical Decision Making This is a 62-year-old male who is complaining of chest pressure for the last 3 days worse with exertion as well as exertional shortness of breath and orthopnea who is presenting to the emergency department. Patient's BNP was elevated and chest x-ray does support a diagnosis of acute exacerbation of CHF. Patient will be admitted to the hospitalist service at this time under Dr. Hyman. The patient was given Lasix and has begun to diurese however does still have some shortness of breath with exertion to walk to the bathroom. Patient's chest pain is improved with nitroglycerin paste Critical Care Time: Yes (30) Critical care attestation.: If time is entered above; I have spent that time in minutes in the direct care of this critically ill patient, excluding procedure time. ED Disposition Clinical Impression: Elevated brain natriuretic peptide (BNP) level Cardiomyopathy Qualifiers: Cardiomyopathy type: unspecified Qualified Code(s): I42.9 - Cardiomyopathy, unspecified CHF exacerbation Qualifiers: Heart failure type: unspecified Qualified Code(s): I50.9 - Heart failure, unspecified Diabetes Qualifiers: Diabetes mellitus type: other specified (including ANGELO) Diabetes mellitus fci insulin use: unspecified fci insulin use status Diabetes mellitus complication status: with unspecified complications Qualified Code(s): E13.8 - Other specified diabetes mellitus with unspecified complications Chest pain Qualifiers: Chest pain type: unspecified Qualified Code(s): R07.9 - Chest pain, unspecified Disposition: 09 OP ADMIT IP TO THIS HOSP Is pt being admited?: Yes Does the pt Need Aspirin: No Condition: Fair Instructions: Diabetes Mellitus Type 2 in Adults (ED), Chest Pain (ED) Time of Disposition: 12:08
[2018-01-29 11:20] LABS: Basophils % (Auto) 0.3 % (0.0-1.8); Eosinophils # (Auto) 0.1 K/mm3 (0.0-0.4); Eosinophils % (Auto) 1.2 % (0.0-4.3); Hematocrit 40.6 % (35.5-45.6); Hemoglobin 13.6 gm/dl (11.8-15.2); Lymphocytes # (Auto) 1.9 K/mm3 (1.2-5.4); Mean Corpuscular HGB Conc 33 % (32-34); Mean Corpuscular Hemoglobin 28 pg (28-32); Mean Corpuscular Volume 82 fl (84-94); Monocytes # (Auto) 0.3 K/mm3 (0.0-0.8); Monocytes % (Auto) 6.9 % (0.0-7.3); Platelet Count 191 K/mm3 (140-440); Red Blood Count 4.93 M/mm3 (3.65-5.03); Red Cell Distribution Width 15.9 % (13.2-15.2)
[2018-01-29 11:24] LABS: BUN/Creatinine Ratio 12; Blood Urea Nitrogen 12 mg/dL (9-20); Calcium 9.3 mg/dL (8.4-10.2); Hemolysis Index 3
--- NOTE | 2018-01-29 12:01 | XRay Report ---
CHEST TWO VIEWS: 01/29/18 10: 50 CLINICAL: Chest pain. COMPARISON: 09/17/17 FINDINGS: The heart is normal size with left intrauterine contour. A single lead pacing device with the lead terminating in the right ventricle. Mild central vascular prominence. The lungs are normally expanded and clear. No tubes or lines.The bones and soft tissues are unremarkable. IMPRESSION: Negative chest with no CHF or pneumonia.
--- NOTE | 2018-01-29 13:18 | History and Physical Report ---
History of Present Illness Chief complaint: Im having chest pain History of present illness: 62 YO Male with HTN, DM, CKD, Asthma, CAD, Systolic CHF (EF 15%), OA, HLD presents to ED for evaluation. Pt states that he has experienced pain in his chest over the past 3 days with persistent symptoms over the same time frame. Pt states that pain is 5/10, constant, "pressure like", not worsened with exertion, not relieved with rest. Pt states that symptoms associated with shortness of breath, Orthopnea/PND. Pt denies fever, chills, palpitations, NVD, Syncope, prolonged travel/immobility,hemoptysis, BRBPR, unilateral leg swelling , calf pain, skin rash, or recent ill contacts. Pt seen and evaluated in ED and found to have CHF Decompensation, ACS. Cardiology consulted. Pt admitted to telemetry. Past History Past Medical History: arthritis, CAD, diabetes, heart failure, hypertension, hyperlipidemia, renal failure Past Surgical History: appendectomy Social history: . denies: smoking, alcohol abuse, prescription drug abuse, IV drug use Family history: diabetes, hypertension Medications and Allergies Allergies Allergy/AdvReac Type Severity Reaction Status Date / Time penicillin AdvReac Rash Verified 07/25/15 10:42 Home Medications Medication Instructions Recorded Confirmed Last Taken Type Spironolactone 25 mg PO DAILY 10/27/14 01/29/18 01/28/18 History Tamsulosin [Flomax] 0.8 mg PO QDAY 10/27/14 01/29/18 01/28/18 History Acetaminophen [Acetaminophen TAB] 650 mg PO Q6H PRN #15 tablet 09/18/1701/28/18 Rx Aspirin [Aspirin EC] 81 mg PO DAILY #30 09/18/17 01/29/18 01/28/18 Rx Lisinopril [Zestril TAB] 40 mg PO QDAY #30 09/18/17 01/29/18 01/28/18 Rx glipiZIDE [Glucotrol] 10 mg PO BID #60 09/18/17 01/29/18 01/28/18 Rx AtorvaSTATin [Lipitor] 80 mg PO QHS 01/29/18 01/29/18 01/28/18 History Carvedilol [Coreg] 12.5 mg PO BID 01/29/18 01/29/18 01/28/18 History Review of Systems Constitutional: no weight loss, no weight gain, no fever, no chills Ears, nose, mouth and throat: no ear pain, no ear discharge, no tinnitis, no decreased hearing, no nose pain Cardiovascular: chest pain, orthopnea, shortness of breath, paroxysmal nocturnal dyspnea, leg edema Respiratory: no cough, no cough with sputum, no excessive sputum, no hemoptysis Gastrointestinal: no nausea, no vomiting, no diarrhea, no constipation Genitourinary Male: no hematuria, no flank pain, no discharge, no urinary frequency Rectal: no pain, no incontinence, no bleeding Musculoskeletal: no neck stiffness, no neck pain, no shooting arm pain, no low back pain Integumentary: no rash, no pruritis, no redness, no sores, no wounds Neurological: no transient paralysis, no paralysis, no weakness, no parathesias , no numbness, no tingling Psychiatric: no anxiety, no memory loss, no change in sleep habits, no sleep disturbances, no insomnia, no hypersomnia, no change in appetite Endocrine: no cold intolerance, no heat intolerance, no polyphagia, no excessive thirst, no polydipsia, no polyuria Hematologic/Lymphatic: no easy bruising, no easy bleeding, no lymphadenopathy, no lymphedema Allergic/Immunologic: no urticaria, no allergic rhinitis, no wheezing, no persistent infections, no anaphylaxis, no angioedema Exam - Constitutional Vitals: Temp Pulse Resp BP Pulse Ox 97.8 F 98 H 21 130/85 94 01/29/18 10:14 01/29/18 11:55 01/29/18 11:55 01/29/18 12:38 01/29/18 12:38 General appearance: Present: mild distress, obese - EENT Eyes: Present: PERRL ENT: hearing intact, clear oral mucosa - Neck Neck: Present: supple, normal ROM - Respiratory Respiratory effort: normal Respiratory: bilateral: CTA - Cardiovascular Heart Sounds: Present: S1 & S2. Absent: rub, click - Extremities Extremities: pulses symmetrical, No edema Extremity abnormal: edema Peripheral Pulses: within normal limits - Abdominal General gastrointestinal: Present: soft, non-tender, non-distended, normal bowel sounds Male genitourinary: Present: normal - Integumentary Integumentary: Present: clear, warm, dry - Musculoskeletal Musculoskeletal: gait normal, strength equal bilaterally - Psychiatric Psychiatric: appropriate mood/affect, intact judgment & insight - Neurologic Neurologic: CNII-XII intact, moves all extremities Results - Labs CBC & Chem 7: 01/29/18 10:38 01/30/18 04:29 Labs: Abnormal lab results 01/29/18 01/29/18 01/29/18 Range/Units 10:38 10:38 10:41 MCV 82 L (84-94) fl RDW 15.9 H (13.2-15.2) % Lymph % (Auto) 40.0 H (13.4-35.0) % Glucose 290 H (75-100) mg/dL NT-Pro-B Natriuret Pep 2425 H (0-900) pg/mL Assessment and Plan - Patient Problems (1) ACS (acute coronary syndrome) Current Visit: Yes Status: Acute Plan to address problem: Admit to telemetry, serial cardiac enzymes, ekg, cardiology consulted in ED, morphine, supplemental oxygen, nitro, aspirin. (2) Acute combined systolic and diastolic heart failure Current Visit: Yes Status: Acute Plan to address problem: Admit to telemetry, cardiology consulted, Strict I/O, daily weight, monitor uop q shift, diuresis, chest x ray, bnp, afterload reduction, (3) Diabetes Current Visit: Yes Status: Chronic Qualifiers: Diabetes mellitus type: other specified (including ANGELO) Diabetes mellitus senior living insulin use: unspecified senior living insulin use status Diabetes mellitus complication status: with unspecified complications Qualified Code(s) : E13.8 - Other specified diabetes mellitus with unspecified complications Plan to address problem: ADA diet, insulin, accu check (4) HTN (hypertension) Current Visit: Yes Status: Chronic Qualifiers: Hypertension type: essential hypertension Qualified Code(s): I10 - Essential (primary) hypertension Plan to address problem: monitor bp q shift (5) Hyperlipidemia Current Visit: Yes Status: Chronic Qualifiers: Hyperlipidemia type: mixed hyperlipidemia Qualified Code(s): E78.2 - Mixed hyperlipidemia Plan to address problem: statin therapy, low cholesterol diet (6) DVT prophylaxis Current Visit: Yes Status: Acute Plan to address problem: scd to BLE while in bed
[2018-01-29] MEDS ORDERED: ZOFRAN IV PRN (13:19)
[2018-01-29] MEDS ORDERED: TYLENOL PO PRN (13:19)
[2018-01-29] MEDS ORDERED: SODIUM CHLORIDE FLUSH SYRINGE 10 ML IV PRN (13:19)
[2018-01-29] MEDS ORDERED: PROVENTIL IH PRN (13:19)
[2018-01-29] MEDS ORDERED: D50W (25GM) Syringe IV PRN (13:37)
--- NOTE | 2018-01-29 15:45 | Consultation ---
History of Present Illness Consult date: 01/29/18 Requesting physician: JACLYN GERARDO Consult reason: congestive heart failure History of present illness: The pt is a 62 YO male with a past medical history significant for nonobstructive CAD, cardiomyopathy, AICD in situ, HTN, DM, CKD, asthma, prostate cancer s/p radiation. He is followed in our office by Dr. Frank Montiel. He presented with complaints of progressively worsening SOB and wheezing for 3 days prior to arrival. He denies any chest pain, palpitations, n/v, diaphoresis , dizziness or syncope. He reports compliance with his home medication regimen. Echo done 08/2017 showed EF 15-20%, impaired relaxation. Lexiscan MPI stress test done 08/2017 was negative for ischemia, EF 21%. LHC done 08/2014 showed 40% distal LM lesion and 60% proximal LAD stenosis. Both lesions were assessed using FFR with IV Adenosine and were deemed to be hemodynamically insignificant with a combined FFR across both lesions of 0.85, LVEDP elevated at 27 mmHg and ejection fraction of 20% with dilated LV and moderate to severe global hypokinesis. Past History Past Medical History: cancer (prostate), diabetes, heart failure, hypertension Past Surgical History: Other (AICD) Medications and Allergies Allergies Allergy/AdvReac Type Severity Reaction Status Date / Time penicillin AdvReac Rash Verified 07/25/15 10:42 Home Medications Medication Instructions Recorded Confirmed Last Taken Type Spironolactone 25 mg PO DAILY 10/27/14 01/29/18 01/28/18 History Tamsulosin [Flomax] 0.8 mg PO QDAY 10/27/14 01/29/18 01/28/18 History Acetaminophen [Acetaminophen TAB] 650 mg PO Q6H PRN #15 tablet 09/18/1701/28/18 Rx Aspirin [Aspirin EC] 81 mg PO DAILY #30 09/18/17 01/29/18 01/28/18 Rx Lisinopril [Zestril TAB] 40 mg PO QDAY #30 09/18/17 01/29/18 01/28/18 Rx glipiZIDE [Glucotrol] 10 mg PO BID #60 09/18/17 01/29/18 01/28/18 Rx AtorvaSTATin [Lipitor] 80 mg PO QHS 10/09/1101/29/18 01/28/18 History Carvedilol [Coreg] 12.5 mg PO BID 01/29/18 01/29/18 01/28/18 History Active Meds: Active Medications Acetaminophen (Tylenol) 650 mg PO Q4H PRN PRN Reason: Pain MILD(1-3)/Fever >100.5/SHELL Albuterol (Proventil) 2.5 mg IH Q4HRT PRN PRN Reason: Shortness Of Breath Dextrose (D50w (25gm) Syringe) 50 ml IV PRN PRN PRN Reason: Hypoglycemia Furosemide (Lasix) 20 mg IV BID@0600,1800 ISH Insulin Human Lispro (Humalog) 0 unit SUB-Q ACHS ISH; Protocol Ondansetron HCl (Zofran) 4 mg IV Q8H PRN PRN Reason: Nausea And Vomiting Sodium Chloride (Sodium Chloride Flush Syringe 10 Ml) 10 ml IV BID ISH Sodium Chloride (Sodium Chloride Flush Syringe 10 Ml) 10 ml IV PRN PRN PRN Reason: LINE FLUSH Review of Systems Constitutional: no weight loss, no weight gain, no fever, no chills, no sweats Ears, nose, mouth and throat: no ear pain, no nose pain, no sinus pressure, no sinus pain Cardiovascular: orthopnea, shortness of breath, dyspnea on exertion, paroxysmal nocturnal dyspnea, leg edema, no chest pain, no palpitations, no rapid/ irregular heart beat, no edema, no syncope, no lightheadedness Respiratory: shortness of breath, dyspnea on exertion, no cough, no congestion, no wheezing, no pain on inspiration Gastrointestinal: no abdominal pain, no nausea, no vomiting, no diarrhea, no constipation Genitourinary Male: no dysuria, no hematuria, no flank pain, no discharge, no urinary frequency, no urinary hesitancy Musculoskeletal: no neck stiffness, no neck pain, no shooting arm pain, no arm numbness/tingling Integumentary: no rash, no pruritis, no redness, no sores, no wounds Neurological: no head injury, no paralysis, no weakness, no parathesias, no numbness, no tingling, no seizures, no syncope Psychiatric: no anxiety Endocrine: no cold intolerance, no heat intolerance Hematologic/Lymphatic: no easy bruising, no easy bleeding Allergic/Immunologic: no urticaria, no wheezing Physical Examination Vital Signs Temp Pulse BP Pulse Ox 97.8 F 105 H 135/91 93 01/29/18 10:14 01/29/18 10:14 01/29/18 10:14 01/29/18 10:14 General appearance: no acute distress HEENT: Positive: PERRL, Normocephaly, Mucus Membranes Moist Neck: Positive: neck supple, trachea midline Cardiac: Positive: Reg Rate and Rhythm, S1/S2 Lungs: Positive: clear to auscultation Neuro: Positive: Grossly Intact Abdomen: Positive: Soft. Negative: Tender Skin: Positive: Clear. Negative: Rash, Wound Extremities: Present: edema (trace BLE) Results 01/29/18 10:38 01/29/18 10:38 CBC 01/29/18 Range/Units 10:38 WBC 4.8 (4.5-11.0) K/mm3 RBC 4.93 (3.65-5.03) M/mm3 Hgb 13.6 (11.8-15.2) gm/dl Hct 40.6 (35.5-45.6) % Plt Count 191 (140-440) K/mm3 Lymph # 1.9 (1.2-5.4) K/mm3 [place] # 0.3 (0.0-0.8) K/mm3 Eos # 0.1 (0.0-0.4) K/mm3 Baso # 0.0 (0.0-0.1) K/mm3 Comprehensive Metabolic Panel 01/29/18 Range/Units 10:38 Sodium 141 (137-145) mmol/L Potassium 3.8 (3.6-5.0) mmol/L Chloride 102.0 (98-107) mmol/L Carbon Dioxide 26 (22-30) mmol/L BUN 12 (9-20) mg/dL Creatinine 1.0 (0.8-1.5) mg/dL Glucose 290 H (75-100) mg/dL Calcium 9.3 (8.4-10.2) mg/dL - Imaging and Cardiology Echo: report reviewed ( 08/2017 showed EF 15-20%, impaired relaxation.) Cardiac cath: report reviewed ( 08/2014 showed 40% distal LM lesion and 60% proximal LAD stenosis. Both lesions were assessed using FFR with IV Adenosine and were deemed to be hemodynamically insignificant with a combined FFR across both lesions of 0.85, LVEDP elevated at 27 mmHg and ejection fraction of 20% with dilated LV and moderate to severe global hypokinesis.) EKG: report reviewed, image reviewed EKG interpretations - Telemetry EKG Rhythm: Sinus Rhythm - EKG Sinus rhythms and dysrhythmias: sinus rhythm Assessment and Plan Agree with IV lasix. Resume home cardiac regimen. Possible d/c home in AM. Assessment and plan reviewed with pt and pt's family at bedside. The patient has been seen in conjunction with Dr. Cool who agrees with the assessment and plan of care. - Patient Problems (1) Acute combined systolic and diastolic heart failure Current Visit: Yes Status: Acute (2) NICM (nonischemic cardiomyopathy) Current Visit: Yes Status: Acute (3) Automatic implantable cardioverter-defibrillator in situ Current Visit: No Status: Chronic (4) Asthma Current Visit: Yes Status: Chronic (5) CAD (coronary artery disease) Current Visit: Yes Status: Chronic Qualifiers: Coronary Disease-Associated Artery/Lesion type: [place] artery (6) Hyperlipidemia Current Visit: Yes Status: Chronic (7) HTN (hypertension) Current Visit: Yes Status: Chronic (8) CKD (chronic kidney disease) Current Visit: Yes Status: Chronic
[2018-01-29] MEDS ORDERED: MORPHINE IV PRN (16:58)
[2018-01-29] MEDS: HumaLOG SUB-Q SCH ×2 (17:41→22:21)
[2018-01-29] MEDS: LASIX IV SCH (17:41)
[2018-01-29] MEDS: COREG PO SCH (22:19)
[2018-01-29] MEDS: SODIUM CHLORIDE FLUSH SYRINGE 10 ML IV SCH (22:20)
[2018-01-30 05:15] LABS: BUN/Creatinine Ratio 15; Blood Urea Nitrogen 15 mg/dL (9-20); Hemolysis Index 14
[2018-01-30] MEDS: LASIX IV SCH (06:24)
[2018-01-30] MEDS: HumaLOG SUB-Q SCH ×2 (09:32→12:51)
[2018-01-30] MEDS: SODIUM CHLORIDE FLUSH SYRINGE 10 ML IV SCH (09:36)
[2018-01-30] MEDS: COREG PO SCH (10:00)
[2018-01-30] MEDS ORDERED: ZESTRIL PO SCH (10:00)
[2018-01-30] MEDS ORDERED: HALFPRIN EC PO SCH (10:00)
[2018-01-30] MEDS ORDERED: ALDACTONE PO SCH (10:00)
--- NOTE | 2018-01-30 11:22 | Progress Note ---
Assessment and Plan now euvolemic trigger ? uri (now better) may dc f/u with me in office - Patient Problems (1) Acute combined systolic and diastolic heart failure Current Visit: Yes Status: Acute (2) CHF exacerbation Current Visit: Yes Status: Acute Qualifiers: Heart failure type: unspecified Qualified Code(s): I50.9 - Heart failure, unspecified (3) Elevated brain natriuretic peptide (BNP) level Current Visit: Yes Status: Acute (4) NICM (nonischemic cardiomyopathy) Current Visit: Yes Status: Acute (5) CAD (coronary artery disease) Current Visit: Yes Status: Chronic Qualifiers: Coronary Disease-Associated Artery/Lesion type: [place] artery (6) CKD (chronic kidney disease) Current Visit: Yes Status: Chronic (7) Diabetes Current Visit: Yes Status: Chronic Qualifiers: Diabetes mellitus type: other specified (including ANGELO) Diabetes mellitus retirement insulin use: unspecified retirement insulin use status Diabetes mellitus complication status: with unspecified complications Qualified Code(s) : E13.8 - Other specified diabetes mellitus with unspecified complications (8) HTN (hypertension) Current Visit: Yes Status: Chronic Qualifiers: Hypertension type: essential hypertension Qualified Code(s): I10 - Essential (primary) hypertension (9) Hyperlipidemia Current Visit: Yes Status: Chronic Qualifiers: Hyperlipidemia type: mixed hyperlipidemia Qualified Code(s): E78.2 - Mixed hyperlipidemia (10) Acute HFrEF (heart failure with reduced ejection fraction) Current Visit: No Status: Acute Subjective Date of service: 01/30/18 Interval history: feels a lot better now "back to normal" no sob, laying flat Objective Vital Signs Temp Pulse Pulse Resp BP Pulse Ox 01/30/18 09:33 91 H 114/74 01/30/18 07:35 98.3 F 91 H 18 114/74 95 01/30/18 04:12 98.2 F 84 116/76 94 01/29/18 23:36 98.7 F 82 18 118/78 94 01/29/18 22:19 94 H 124/75 01/29/18 22:00 95 H 98 01/29/18 20:06 98.8 F 99 H 18 124/75 93 01/29/18 16:30 95 H 18 01/29/18 16:24 95 H 01/29/18 15:30 98.4 F 96 H 20 110/76 95 01/29/18 12:38 130/85 94 01/29/18 12:36 130/85 96 01/29/18 12:34 130/85 97 01/29/18 12:32 130/85 97 01/29/18 12:30 130/85 95 01/29/18 12:27 130/85 95 01/29/18 12:26 130/85 94 01/29/18 12:24 130/85 93 01/29/18 12:22 130/85 93 01/29/18 12:20 130/85 96 01/29/18 12:18 130/85 93 01/29/18 12:16 130/85 95 01/29/18 12:14 130/85 95 01/29/18 12:10 130/85 94 01/29/18 12:09 130/85 94 01/29/18 12:08 130/85 95 01/29/18 12:06 130/85 95 01/29/18 12:04 130/85 97 01/29/18 12:02 130/85 97 01/29/18 11:55 98 H 21 130/85 96 01/29/18 11:54 99 H 18 130/85 96 01/29/18 11:52 99 H 17 130/85 95 01/29/18 11:50 97 H 15 130/85 97 01/29/18 11:48 114 H 20 130/85 01/29/18 11:46 100 H 19 130/85 95 01/29/18 11:44 101 H 14 130/85 95 01/29/18 11:42 110 H 25 H 130/85 97 01/29/18 11:40 103 H 19 130/85 95 01/29/18 11:38 100 H 18 130/85 97 01/29/18 11:36 95 H 17 130/85 98 01/29/18 11:34 93 H 21 130/85 95 01/29/18 11:32 96 H 16 130/85 93 01/29/18 11:30 92 H 20 130/85 94 01/29/18 11:28 93 H 16 130/85 95 01/29/18 11:26 99 H 18 130/85 97 01/29/18 11:24 97 H 19 130/85 95 01/29/18 11:22 97 H 20 130/85 96 - Physical Examination HEENT: Positive: PERRL, Normocephaly, Mucus Membranes Moist Neck: Positive: neck supple, trachea midline Neuro: Positive: Grossly Intact Abdomen: Positive: Soft. Negative: Tender Skin: Positive: Clear. Negative: Rash, Wound Extremities: Present: edema (trace BLE) - Labs and Meds CBC 01/29/18 Range/Units 10:38 WBC 4.8 (4.5-11.0) K/mm3 RBC 4.93 (3.65-5.03) M/mm3 Hgb 13.6 (11.8-15.2) gm/dl Hct 40.6 (35.5-45.6) % Plt Count 191 (140-440) K/mm3 Lymph # 1.9 (1.2-5.4) K/mm3 [place] # 0.3 (0.0-0.8) K/mm3 Eos # 0.1 (0.0-0.4) K/mm3 Baso # 0.0 (0.0-0.1) K/mm3 Comprehensive Metabolic Panel 01/29/18 01/30/18 Range/Units 10:38 04:29 Sodium 141 137 (137-145) mmol/L Potassium 3.8 3.9 (3.6-5.0) mmol/L Chloride 102.0 94.9 L (98-107) mmol/L Carbon Dioxide 26 22 (22-30) mmol/L BUN 12 15 (9-20) mg/dL Creatinine 1.0 1.0 (0.8-1.5) mg/dL Glucose 290 H 230 H (75-100) mg/dL Calcium 9.3 9.0 (8.4-10.2) mg/dL - Imaging and Cardiology EKG: report reviewed, image reviewed Echo: report reviewed ( 08/2017 showed EF 15-20%, impaired relaxation.) Cardiac cath: report reviewed ( 08/2014 showed 40% distal LM lesion and 60% proximal LAD stenosis. Both lesions were assessed using FFR with IV Adenosine and were deemed to be hemodynamically insignificant with a combined FFR across both lesions of 0.85, LVEDP elevated at 27 mmHg and ejection fraction of 20% with dilated LV and moderate to severe global hypokinesis.) - EKG Sinus rhythms and dysrhythmias: sinus rhythm
[2018-01-30 12:11] VITALS: BP 104/65
--- NOTE | 2018-01-30 14:12 | Discharge Summary ---
Providers - Providers Date of Admission: 01/29/18 13:19 Date of discharge: 01/30/18 Attending physician: NAVID YOO 01/29/18 13:19 Consult to Physician [CONS] Routine Comment: Consulting Provider: KATHIA NERI Physician Instructions: Reason For Exam: chf Primary care physician: GLUE CLAMP OPERATOR Hospitalization Condition: Fair Pertinent studies: cxr: IMPRESSION: Negative chest with no CHF or pneumonia. Hospital course: Brief history: 62 YO Male with HTN, DM, CKD, CAD, Systolic CHF (EF 15%), OA, HLD presents to ED for pain in his chest over the past 3 days. Cardiology was consulted, Pt was admitted to telemetry. Cardiology didnot recommend any further workup. he was managed with CHF protocol. His BG was elevated and patient was counselled to keep up a BG diary. he was more interested in f/u with his PCP for BG management. He was discharged home with outpt follow up. Discharge diagnoses: (1) Acute combined systolic and diastolic heart failure Current Visit: Yes Status: Acute (2) CHF exacerbation Current Visit: Yes Status: Acute Qualifiers: Heart failure type: unspecified Qualified Code(s): I50.9 - Heart failure, unspecified (3) Elevated brain natriuretic peptide (BNP) level Current Visit: Yes Status: Acute (4) NICM (nonischemic cardiomyopathy) Current Visit: Yes Status: Acute (5) CAD (coronary artery disease) Current Visit: Yes Status: Chronic Qualifiers: Coronary Disease-Associated Artery/Lesion type: [place] artery (6) CKD (chronic kidney disease) Current Visit: Yes Status: Chronic (7) Diabetes Current Visit: Yes Status: Chronic Qualifiers: Diabetes mellitus type: other specified (including ANGELO) Diabetes mellitus correction insulin use: unspecified bed bug exterminator insulin use status Diabetes mellitus complication status: with unspecified complications Qualified Code(s) : E13.8 - Other specified diabetes mellitus with unspecified complications (8) HTN (hypertension) Current Visit: Yes Status: Chronic Qualifiers: Hypertension type: essential hypertension Qualified Code(s): I10 - Essential (primary) hypertension (9) Hyperlipidemia Current Visit: Yes Status: Chronic Qualifiers: Hyperlipidemia type: mixed hyperlipidemia Qualified Code(s): E78.2 - Mixed hyperlipidemia Disposition: - TO HOME OR SELFCARE Time spent for discharge: 34 minutes Core Measure Documentation - Palliative Care Palliative Care/ Comfort Measures: Not Applicable - Core Measures Any of the following diagnoses?: none Exam - Constitutional Vitals: Temp Pulse Resp BP Pulse Ox 98.3 F 90 18 104/65 95 01/30/18 11:44 01/30/18 11:44 01/30/18 11:44 01/30/18 11:44 01/30/18 11:44 General appearance: Present: no acute distress, obese - EENT Eyes: Present: PERRL ENT: hearing intact, clear oral mucosa - Neck Neck: Present: supple, normal ROM - Respiratory Respiratory effort: normal Respiratory: bilateral: CTA - Cardiovascular Heart Sounds: Present: S1 & S2. Absent: rub, click - Extremities Extremities: pulses symmetrical, No edema Peripheral Pulses: within normal limits - Abdominal General gastrointestinal: Present: soft, non-tender, non-distended, normal bowel sounds - Integumentary Integumentary: Present: clear, warm, dry - Musculoskeletal Musculoskeletal: gait normal, strength equal bilaterally - Psychiatric Psychiatric: appropriate mood/affect, intact judgment & insight - Neurologic Neurologic: CNII-XII intact, moves all extremities Plan Activity: advance as tolerated Weight Bearing Status: Weight Bear as Tolerated Diet: diabetic Special Instructions: record daily weights, record blood sugar diary Follow up with: PRIMARY CARE, [Primary Care Provider] - 7 Days Prescriptions: AtorvaSTATin [Lipitor] 80 mg PO QHS #30 tablet Lisinopril [Zestril TAB] 20 mg PO QDAY #30 tablet
[2018-01-30] MEDS ORDERED: GLUCOTROL PO SCH (22:00)
== END 2018-01-30 15:30 | disposition home or self-care (01) | DRG 291 ==
LOC: ED 10:07 → 4A 13:19
PROVIDERS: ADMIT Internal Medicine; ATTEND Internal Medicine
DX: I13.0 Hypertensive heart and chronic kidney disease with heart failure and stage 1 through stage 4 chronic kidney disease, or unspecified chronic kidney disease (principal); I50.43 Acute on chronic combined systolic (congestive) and diastolic (congestive) heart failure; N18.9 Chronic kidney disease, unspecified; E11.22 Type 2 diabetes mellitus with diabetic chronic kidney disease; I25.10 Atherosclerotic heart disease of native coronary artery without angina pectoris; M19.90 Unspecified osteoarthritis, unspecified site; E78.2 Mixed hyperlipidemia; J45.909 Unspecified asthma, uncomplicated; N40.0 Benign prostatic hyperplasia without lower urinary tract symptoms; I42.8 Other cardiomyopathies; Z95.810 Presence of automatic (implantable) cardiac defibrillator; Z85.46 Personal history of malignant neoplasm of prostate; Z71.89 Other specified counseling; Z88.0 Allergy status to penicillin; Z79.899 Other long term (current) drug therapy; Z79.82 Long term (current) use of aspirin; Z90.49 Acquired absence of other specified parts of digestive tract; Z83.3 Family history of diabetes mellitus; Z82.49 Family history of ischemic heart disease and other diseases of the circulatory system
CPT/HCPCS: 36415; 71046; 80048; 82962; 83880; 84484; 85025; 85379; 93005; 93010; 96374; A9270-GY; J1815; J1940

== ENCOUNTER 2018-02-16 22:50 | Emergency (ER) | payer MEDICARE ==
[2018-02-16] MEDS ORDERED: TYLENOL PO STA (23:16)
--- NOTE | 2018-02-16 23:17 | Emergency Department Report ---
ED General Adult HPI - General Chief complaint: Chest Pain Stated complaint: CHEST PAIN Time Seen by Provider: 02/16/18 23:04 Source: patient, family, RN notes reviewed, old records reviewed Mode of arrival: Wheelchair Limitations: No Limitations - History of Present Illness Initial comments: This is a 62-year-old gentleman who is not known to this provider previously, past medical history includes nonobstructive heart disease, cardiomyopathy, [facility] ICD, hypertension, diabetes, asthma, prostate cancer status post radiation. Follows with Dr. Frank Farias Recently had a negative nuclear stress tests at this hospital, had an echocardiogram which recently demonstrated an ejection fraction of 15-20%, and had a left heart cath performed on August 2014, which demonstrated a 40% distal left main lesion, and 60% proximal LAD stenosis. Both lesions were deemed to be hemodynamically insignificant as per review of old medical records. Patient reports being in his usual state of health today, when he had a sensation of heart fluttering, and then felt like he had electric shock on his chest. After getting shocked, he has central chest pain which does not radiate to the back, arms or neck. His chest pain is improved. He denies severe headache, neck pain, shortness of breath which is new or different, vomiting or diaphoresis. He denies leg pain, leg swelling, hematemesis, bright red blood per rectum. He further indicates that he has follow-up with his private bottom bleacher on February 19, 2:00 PM. -: Sudden Location: chest Radiation: non-radiation Quality: aching Consistency: other Improves with: none Worsens with: none Associated Symptoms: chest pain, shortness of breath (chronic), syncope, other ( patient reports transient loss of consciousness after getting shocked.). denies : confusion, cough, diaphoresis, fever/chills, headaches, loss of appetite, malaise, nausea/vomiting, rash, seizure, weakness - Related Data Home Medications Medication Instructions Recorded Confirmed Last Taken Spironolactone 25 mg PO DAILY 10/27/14 01/29/18 01/28/18 Tamsulosin [Flomax] 0.8 mg PO QDAY 10/27/14 01/29/18 01/28/18 Previous Rx's Medication Instructions Recorded Last Taken Type Acetaminophen [Acetaminophen TAB] 650 mg PO Q6H PRN #15 tablet 09/18/17 Rx Aspirin [Aspirin EC] 81 mg PO DAILY #30 09/18/17 01/28/18 Rx glipiZIDE [Glucotrol] 10 mg PO BID #60 09/18/17 01/28/18 Rx AtorvaSTATin [Lipitor] 80 mg PO QHS #30 tablet 01/30/18 Unknown Rx Lisinopril [Zestril TAB] 20 mg PO QDAY #30 tablet 01/30/18 Unknown Rx Magnesium Oxide 400 mg PO QDAY #10 tablet 02/17/18 Unknown Rx Allergies Allergy/AdvReac Type Severity Reaction Status Date / Time penicillin AdvReac Rash Verified 07/25/15 10:42 ED Review of Systems ROS: Stated complaint: CHEST PAIN Other details as noted in HPI Constitutional: denies: diaphoresis, fever, malaise Eyes: denies: eye discharge Respiratory: shortness of breath (chronic) Cardiovascular: chest pain, syncope Gastrointestinal: denies: abdominal pain, vomiting Genitourinary: denies: dysuria Musculoskeletal: arthralgia, myalgia Skin: denies: lesions Neurological: denies: headache, weakness Psychiatric: denies: anxiety ED Past Medical Hx - Past Medical History Previous Medical History?: Yes Hx Hypertension: Yes Hx Congestive Heart Failure: Yes (USES DEFRIBILATOR) Hx Diabetes: Yes Hx Arthritis: Yes (LOWER BACK) Hx Asthma: Yes Additional medical history: BPH. HIGH CHOLESTEROL - Surgical History Past Surgical History?: Yes Hx Internal Defibrillator: Yes (09/2014) Hx Appendectomy: Yes ( A CHILD) - Social History Smoking Status: Never Smoker Substance Use Type: None - Medications Home Medications: Home Medications Medication Instructions Recorded Confirmed Last Taken Type Spironolactone 25 mg PO DAILY 10/27/14 01/29/18 01/28/18 History Tamsulosin [Flomax] 0.8 mg PO QDAY 10/27/14 01/29/18 01/28/18 History Acetaminophen [Acetaminophen TAB] 650 mg PO Q6H PRN #15 tablet 09/18/1701/28/18 Rx Aspirin [Aspirin EC] 81 mg PO DAILY #30 09/18/17 01/29/18 01/28/18 Rx glipiZIDE [Glucotrol] 10 mg PO BID #60 09/18/17 01/29/18 01/28/18 Rx AtorvaSTATin [Lipitor] 80 mg PO QHS #30 tablet 01/30/18 Unknown Rx Lisinopril [Zestril TAB] 20 mg PO QDAY #30 tablet 01/30/18 Unknown Rx Magnesium Oxide 400 mg PO QDAY #10 tablet 02/17/18 Unknown Rx ED Physical Exam - General Limitations: No Limitations General appearance: alert, in no apparent distress - Head Head exam: Present: atraumatic, normocephalic - Eye Eye exam: Present: normal appearance, EOMI. Absent: nystagmus - ENT ENT exam: Present: normal exam, normal orophraynx, mucous membranes moist, normal external ear exam - Neck Neck exam: Present: normal inspection, full ROM. Absent: tenderness, meningismus - Respiratory Respiratory exam: Present: normal lung sounds bilaterally. Absent: respiratory distress - Cardiovascular Cardiovascular Exam: Present: normal rhythm, tachycardia, normal heart sounds. Absent: bradycardia, irregular rhythm, systolic murmur, diastolic murmur, rubs, gallop - GI/Abdominal GI/Abdominal exam: Present: soft. Absent: distended, tenderness, guarding, rebound, rigid, pulsatile mass - Rectal Rectal exam: Present: deferred - Extremities Exam Extremities exam: Present: normal inspection, full ROM, other (2+ pulses noted in the bilateral upper, lower extremities. Compartments soft. No long bony tenderness. The pelvis is stable.). Absent: calf tenderness - Back Exam Back exam: Present: normal inspection, full ROM. Absent: tenderness, CVA tenderness (R), paraspinal tenderness, vertebral tenderness - Neurological Exam Neurological exam: Present: alert, oriented X3, CN II-XII intact, normal gait, other (Extraocular movements intact. Tongue midline. No facial droop. Facial sensation intact to light touch in the V1, V2, V3 distribution bilaterally. 5 and 5 strength in 4 extremities.. Sensation is intact to light touch in 4 extremities.). Absent: motor sensory deficit - Psychiatric Psychiatric exam: Present: normal affect, normal mood - Skin Skin exam: Present: warm, dry, intact, normal color. Absent: rash ED Course Vital Signs 02/16/18 02/16/18 02/17/18 22:55 23:30 01:00 Temperature 99.0 F Pulse Rate 100 H 92 H 88 Respiratory 18 18 25 H Rate Blood Pressure 150/88 133/81 118/76 O2 Sat by Pulse 96 97 97 Oximetry - Reevaluation(s) Reevaluation #1: 02/17/18 00:33 Differential diagnosis, including the not limited to: Arrhythmia, pneumonia, GERD, gastritis, acute coronary syndrome, pulmonary embolus Assessment and plan: 62-year-old gentleman who describes sensation of palpitations, was not having any pain prior, received a shock, thinks that he had an episode of syncope and has chest wall pain. His device was interrogated and evaluated by [facility], who indicate the patient was tachycardic to 226 bpm, and appeared to have a run of SVT. There may have also been a component of A. fib with RVR. Patient is currently pain-free at this time, and in a sinus rhythm. He is afebrile with reassuring vital signs, and has been noted to be smiling, laughing and in general good spirits with his family. A d-dimer is negative, EKG is unchanged 1 with repetitive prior, troponin negative 1, patient recently had a cardiac risk stratification, and patient is currently not tachycardic or hypoxic. I find the patient to be low risk by well's criteria given the aforementioned clinical history. Patient found to be hypomagnesemic and this will be repleted. Extensive discussion had with patient and family. He is follow-up with his primary bottom bleacher in 2 days. Patient had low risk for major adverse cardiac events. Patient prefers to follow up as an outpatient on Thursday. Through shared decision making, patient, family, and myself agree to have the patient follow up with his outpatient bottom bleacher in 2 days as planned. This is also discussed with bottom bleacher clinical education coordinator, Dr. Cool, who is amenable and agreeable to this plan. 02/17/18 00:45 Reevaluation #2: 02/17/18 02:00 Patient observed in the ER for hours without clinical decompensation or recurrent event. He is resting comfortably with his family. He has follow-up in 2 days. He'll be discharged at this time. ED Medical Decision Making - Lab Data Result diagrams: 02/16/18 23:22 02/16/18 23:22 Vital Signs 02/16/18 22:55 Temperature 99.0 F Pulse Rate 100 H Respiratory 18 Rate Blood Pressure 150/88 O2 Sat by Pulse 96 Oximetry Lab Results 02/16/18 02/16/18 02/16/18 Range/Units 23:22 23:22 23:22 WBC 5.3 (4.5-11.0) K/mm3 RBC 4.81 (3.65-5.03) M/mm3 Hgb 13.0 (11.8-15.2) gm/dl Hct 39.5 (35.5-45.6) % MCV 82 L (84-94) fl MCH 27 L (28-32) pg MCHC 33 (32-34) % RDW 15.4 H (13.2-15.2) % Plt Count 195 (140-440) K/mm3 Baso % (Auto) [employer] PT 13.8 (12.2-14.9) Sec. INR 1.01 (0.87-1.13) D-Dimer 190.74 (0-234) ng/mlDDU Sodium 139 (137-145) mmol/L Potassium 3.8 (3.6-5.0) mmol/L Chloride 102.5 (98-107) mmol/L Carbon Dioxide 23 (22-30) mmol/L Anion Gap 17 mmol/L BUN 17 (9-20) mg/dL Creatinine 1.2 (0.8-1.5) mg/dL Estimated GFR > 60 ml/min BUN/Creatinine Ratio 14 % Glucose 289 H (75-100) mg/dL Calcium 9.3 (8.4-10.2) mg/dL Magnesium 1.50 L (1.7-2.3) mg/dL Total Bilirubin 0.40 (0.1-1.2) mg/dL AST 12 (5-40) units/L ALT 14 (7-56) units/L Alkaline Phosphatase 64 (35-129) units/L Troponin T < 0.010 (0.00-0.029) ng/mL Total Protein 6.6 (6.3-8.2) g/dL Albumin 3.9 (3.9-5) g/dL Albumin/Globulin Ratio 1.4 % TSH (0.270-4.200) mlU/mL 02/16/18 Range/Units 23:22 WBC (4.5-11.0) K/mm3 RBC (3.65-5.03) M/mm3 Hgb (11.8-15.2) gm/dl Hct (35.5-45.6) % MCV (84-94) fl MCH (28-32) pg MCHC (32-34) % RDW (13.2-15.2) % Plt Count (140-440) K/mm3 Baso % (Auto) PT (12.2-14.9) Sec. INR (0.87-1.13) D-Dimer (0-234) ng/mlDDU Sodium (137-145) mmol/L Potassium (3.6-5.0) mmol/L Chloride (98-107) mmol/L Carbon Dioxide (22-30) mmol/L Anion Gap mmol/L BUN (9-20) mg/dL Creatinine (0.8-1.5) mg/dL Estimated GFR ml/min BUN/Creatinine Ratio % Glucose (75-100) mg/dL Calcium (8.4-10.2) mg/dL Magnesium (1.7-2.3) mg/dL Total Bilirubin (0.1-1.2) mg/dL AST (5-40) units/L ALT (7-56) units/L Alkaline Phosphatase (35-129) units/L Troponin T (0.00-0.029) ng/mL Total Protein (6.3-8.2) g/dL Albumin (3.9-5) g/dL Albumin/Globulin Ratio % TSH 1.370 (0.270-4.200) mlU/mL - EKG Data -: EKG Interpreted by Wi EKG shows normal: sinus rhythm Rate: tachycardia - EKG Data When compared to previous EKG there are: no significant change 02/17/18 00:48 EKG #1 shows sinus tachycardia, 103 bpm, normal axis, QTC prolonged, atrial enlargement, nonspecific T-wave abnormalities, appears unchanged when compared to prior EKG from January 2018. EKG #2 appears to be unchanged. - Radiology Data Radiology results: report reviewed, image reviewed X-ray the chest is negative for acute disease. Critical care attestation.: If time is entered above; I have spent that time in minutes in the direct care of this critically ill patient, excluding procedure time. ED Disposition Clinical Impression: Automatic implantable cardioverter-defibrillator in situ, History of cardiac arrhythmia Disposition: TO HOME OR SELFCARE Is pt being admited?: No Does the pt Need Aspirin: No Condition: Good Additional Instructions: Continue current outpatient medications. Follow up with your bottom bleacher in Thursday as scheduled. Do not drive or operate motor vehicles until cleared by either her primary care doctor or bottom bleacher. Return to the ER right away with new pain, worsened pain, migration of pain, projectile vomiting, change in mental status, confusion, inability to tolerate liquid feeds. Prescriptions: Magnesium Oxide 400 mg PO QDAY #10 tablet Referrals: PRIMARY CARE, [Primary Care Provider] - 3-5 Days OUSMANE FARIAS MD [Staff Physician] - 3-5 Days JACKIE FARIAS MD [Staff Physician] - 3-5 Days
[2018-02-16 23:47] LABS: Hematocrit 39.5 % (35.5-45.6); Mean Corpuscular HGB Conc 33 % (32-34); Mean Corpuscular Hemoglobin 27 pg (28-32); Mean Corpuscular Volume 82 fl (84-94); Platelet Count 195 K/mm3 (140-440); Red Blood Count 4.81 M/mm3 (3.65-5.03); Red Cell Distribution Width 15.4 % (13.2-15.2)
[2018-02-17 00:02] LABS: INR 1.01 (0.87-1.13)
[2018-02-17 00:10] LABS: Alanine Aminotransferase 14 units/L (7-56); Albumin 3.9 g/dL (3.9-5); BUN/Creatinine Ratio 14; Blood Urea Nitrogen 17 mg/dL (9-20); Calcium 9.3 mg/dL (8.4-10.2); Hemolysis Index 11
--- NOTE | 2018-02-17 00:14 | XRay Report ---
FINAL REPORT EXAM: XR CHEST 1V AP HISTORY: Syncope TECHNIQUE: AP portable view of the chest. PRIORS: None. FINDINGS: There is a left-sided AICD that appears adequately positioned.The cardiac silhouette is enlarged. The lungs are clear. The bones and soft tissues are unremarkable. IMPRESSION: Cardiomegaly. No evidence of acute CHF
[2018-02-17] MEDS ORDERED: MAGNESIUM SULFATE 2GM/50ML 2 GM/50 ML BAG IV ONE (00:23)
[2018-02-17 01:53] LABS: Eosinophils % (Manual) 0 % (0.0-4.3); Myelocytes # (Manual) 0.1 K/mm3; Total Cells Counted 100
[2018-02-17 01:54] LABS: Platelet Estimate Consistent w Auto
[2018-02-17 02:13] VITALS: BP 119/76
== END 2018-02-17 02:13 | disposition home or self-care (01) ==
LOC: ED 22:50
DX: T82.9XXA Unspecified complication of cardiac and vascular prosthetic device, implant and graft, initial encounter (principal); I11.0 Hypertensive heart disease with heart failure; I50.9 Heart failure, unspecified; E11.9 Type 2 diabetes mellitus without complications; J45.909 Unspecified asthma, uncomplicated; E78.00 Pure hypercholesterolemia, unspecified; M13.88 Other specified arthritis, other site; Z90.49 Acquired absence of other specified parts of digestive tract; N40.0 Benign prostatic hyperplasia without lower urinary tract symptoms; Z79.899 Other long term (current) drug therapy; Z88.0 Allergy status to penicillin
CPT/HCPCS: 36415; 71045; 80053; 83735; 84443; 84484; 85007; 85025; 85379; 85610; 93005; 93010; 96365; 99284; J3475

== ENCOUNTER 2019-01-31 13:24 | Outpatient (CLI) | payer MEDICARE ==
--- NOTE | 2019-01-31 14:24 | XRay Report ---
RIGHT HIP, 2 VIEWS INDICATION: M25.551 RIGHT HIP PAIN. COMPARISON: None. IMPRESSION: Normal bone mineralization. Mild osteoarthritic changes are identified at the right hip joint. No evidence for fracture, dislocation or osteonecrosis. No bony lesion. The soft tissues are unremarkable. Signer Name: Brent Galvan Jr, MD Signed: 01/31/2019 2:19 PM Workstation Name: [id number]
== END 2019-01-31 13:25 | disposition home or self-care (01) ==
LOC: XRAY 13:24
PROVIDERS: ATTEND Internal Medicine
DX: M16.11 Unilateral primary osteoarthritis, right hip (principal); M25.551 Pain in right hip; I11.0 Hypertensive heart disease with heart failure; I50.9 Heart failure, unspecified; Z90.89 Acquired absence of other organs; J45.909 Unspecified asthma, uncomplicated; M19.90 Unspecified osteoarthritis, unspecified site

== ENCOUNTER 2020-08-05 01:36 | Inpatient (IN) | payer MEDICARE ==
[2020-08-05 02:04] LABS: Basophils % (Auto) 0.3 % (0.0-1.8); Eosinophils % (Auto) 0.6 % (0.0-4.3); Hematocrit 37.5 % (35.5-45.6); Hemoglobin 11.8 gm/dl (11.8-15.2); Lymphocytes % (Auto) 40.9 % (13.4-35.0); Mean Corpuscular HGB Conc 32 % (32-34); Mean Corpuscular Volume 92 fl (84-94); Monocytes # (Auto) 0.3 K/mm3 (0.0-0.8); Monocytes % (Auto) 3.9 % (0.0-7.3); Platelet Count 182 K/mm3 (140-440); Red Cell Distribution Width 17.9 % (13.2-15.2)
--- NOTE | 2020-08-05 02:09 | Emergency Department Report ---
ED Shortness of Breath HPI - General Chief Complaint: Arrhythmia/Palpitations Stated Complaint: CHEST PAIN Time Seen by Provider: 08/05/20 01:43 Source: patient Mode of arrival: Ambulatory Limitations: No Limitations - History of Present Illness Initial Comments: 64-year-old male, history of CHF with AICD, A. fib on Pradaxa, hypertension, diabetes, chronic kidney disease, presents to ED with difficulty breathing. EMS was called to patient's home tonight for shortness of breath. Patient reports onset tonight. Upon arrival EMS notes that patient appeared to be in A. fib with RVR with a heart rate between 150s and 200s. Patient was given amiodarone 150 mg IV by EMS, which seems to have converted patient to sinus tach with improved heart rate. Patient has rales on exam. Patient also reporting some chest pain. He denies any fever. Reports mild cough. Denies any known contact with anyone who has tested positive for COVID-19. Patient states he has received the first dose of his Covid vaccine. Patient states he took an additional dose of Lasix 80 mg at 7:30 PM. MD Complaint: shortness of breath -: This evening Severity: severe Consistency: constant Improves With: nothing Worsens With: exertion Known History Of: congestive heart failure Associated Symptoms: chest pain Treatments Prior to Arrival: oxygen, other (Amiodarone 150 mg) - Related Data Home Oxygen Therapy: No Home Medications Medication Instructions Recorded Confirmed Last Taken Spironolactone 25 mg PO DAILY 10/27/14 02/18/18 01/28/18 Tamsulosin [Flomax] 0.8 mg PO QHS 10/27/14 02/18/18 01/28/18 Lisinopril [Zestril] 40 mg PO DAILY 02/18/18 02/18/18 Unknown Previous Rx's Medication Instructions Recorded Last Taken Type Aspirin [Aspirin EC] 81 mg PO DAILY #30 09/18/17 01/28/18 Rx glipiZIDE [Glucotrol] 10 mg PO BID #60 09/18/17 01/28/18 Rx AtorvaSTATin [Lipitor] 80 mg PO QHS #30 tablet 01/30/18 Unknown Rx Magnesium Oxide 400 mg PO QDAY #10 tablet 02/17/18 02/17/18 Rx Allergies Allergy/AdvReac Type Severity Reaction Status Date / Time penicillin AdvReac Rash Verified 07/25/15 10:42 ED Review of Systems ROS: Stated complaint: CHEST PAIN Other details as noted in HPI Comment: All other systems reviewed and negative Constitutional: denies: fever Respiratory: cough, orthopnea, shortness of breath Cardiovascular: chest pain ED Past Medical Hx - Past Medical History Previous Medical History?: Yes Hx Hypertension: Yes Hx Congestive Heart Failure: Yes (USES DEFRIBILATOR) Hx Diabetes: Yes Hx Arthritis: Yes (LOWER BACK) Hx Asthma: Yes Additional medical history: BPH. HIGH CHOLESTEROL - Surgical History Past Surgical History?: Yes Hx Pacemaker: Yes Hx Internal Defibrillator: Yes (09/2014) Hx Appendectomy: Yes - Social History Smoking Status: Never Smoker Substance Use Type: None - Medications Home Medications: Home Medications Medication Instructions Recorded Confirmed Last Taken Type Spironolactone 25 mg PO DAILY 10/27/14 02/18/18 01/28/18 History Tamsulosin [Flomax] 0.8 mg PO QHS 10/27/14 02/18/18 01/28/18 History Aspirin [Aspirin EC] 81 mg PO DAILY #30 09/18/17 02/18/18 01/28/18 Rx glipiZIDE [Glucotrol] 10 mg PO BID #60 09/18/17 02/18/18 01/28/18 Rx AtorvaSTATin [Lipitor] 80 mg PO QHS #30 tablet 01/30/18 02/18/18 Unknown Rx Magnesium Oxide 400 mg PO QDAY #10 tablet 02/17/18 02/18/18 02/17/18 Rx Lisinopril [Zestril] 40 mg PO DAILY 02/18/18 02/18/18 Unknown History ED Physical Exam - General Limitations: No Limitations General appearance: alert - Head Head exam: Present: atraumatic, normocephalic - Eye Eye exam: Present: normal appearance - ENT ENT exam: Present: mucous membranes moist - Neck Neck exam: Present: normal inspection - Respiratory Respiratory exam: Present: respiratory distress, rales, other (Tachypneic) - Cardiovascular Cardiovascular Exam: Present: normal rhythm, tachycardia - GI/Abdominal GI/Abdominal exam: Present: soft. Absent: distended, tenderness - Extremities Exam Extremities exam: Present: other (1+ pitting edema bilateral lower legs) - Neurological Exam Neurological exam: Present: alert, oriented X3 - Psychiatric Psychiatric exam: Present: normal affect, normal mood - Skin Skin exam: Present: warm, dry, intact, normal color ED Course Vital Signs 08/05/20 08/05/20 08/05/20 01:51 01:52 02:32 Temperature 98 F Pulse Rate 129 H 130 H 130 H Respiratory 43 H 16 Rate Blood Pressure 151/82 152/107 Blood Pressure [Left] O2 Sat by Pulse 100 100 Oximetry 08/05/20 08/05/20 08/05/20 02:55 03:11 03:18 Temperature Pulse Rate 150 H 140 H 140 H Respiratory 16 20 Rate Blood Pressure Blood Pressure 152/108 153/98 [Left] O2 Sat by Pulse 100 100 Oximetry 08/05/20 08/05/20 03:33 04:12 Temperature Pulse Rate 130 H 117 H Respiratory 16 35 H Rate Blood Pressure 135/80 Blood Pressure 142/107 [Left] O2 Sat by Pulse 100 100 Oximetry ED Medical Decision Making - Lab Data Result diagrams: 08/05/20 01:47 08/05/20 01:47 - EKG Data -: EKG Interpreted by Ok EKG shows normal: sinus rhythm, QRS complexes Rate: tachycardia (rate 128) - EKG Data Interpretation: nonspecific ST-T wave maureen, other (left axis deviation) - Radiology Data Radiology results: report reviewed, image reviewed - Medical Decision Making 64-year-old male presents to ED in acute respiratory distress. Prior to ED arrival, patient reports onset of difficulty breathing last night. Patient states he believes it is his CHF. Patient also reports some orthopnea as well. Patient reports taking an extra dose of Lasix at home prior to calling EMS. Upon EMS arrival, patient was found to be in A. fib with RVR. He was given amiodarone 150 mg by EMS. Upon ED arrival, patient appeared to have possibly converted to sinus tachycardia. Patient was placed on BiPAP due to his tachypnea and rales on exam. Patient then appeared to revert back into A. fib with a heart rate in the 140s, so Cardizem 20 mg IV was given, which improved heart rate to the 110s. Patient was given IV hydralazine for hypertensive crisis. Chest x-ray does not appear to show any pulmonary edema. Patient states he feels as if he is dehydrated. This may be one reason we are not seeing any findings on x-ray at this time. Glucose is 500, however no ketones present, therefore patient does not appear to be in DKA. Small bolus of IV fluids 250 cc given along with insulin bolus. Patient also given IV Lasix here in the ED. Patient status has improved greatly. Respirations have normalized. I spoke with the hospitalist, who wants to add on Covid panel and testing. Ebony costello will be admitted by Dr. Baker, hospitalist, for further management. - Differential Diagnosis CHF, ACS, PE, COVID-19 Critical Care Time: Yes Critical care time in (mins) excluding proc time.: 35 Critical care attestation.: If time is entered above; I have spent that time in minutes in the direct care of this critically ill patient, excluding procedure time. Critical Care Time: 35 min ED Disposition Clinical Impression: Hyperglycemia, Acute respiratory failure, Suspected COVID-19 virus infection, CHF exacerbation, Atrial fibrillation with RVR, Hypertensive emergency Disposition: DC-09 OP ADMIT IP TO THIS HOSP Is pt being admited?: Yes Condition: Stable Time of Disposition: 03:53
[2020-08-05] MEDS ORDERED: hydrALAZINE 20 MG/1 ML INJ IV ONE (02:17)
[2020-08-05 02:19] LABS: INR 1.36 (0.87-1.13)
[2020-08-05 02:20] LABS: Partial Thromboplastin Time 34.9 Sec. (24.2-36.6)
[2020-08-05 02:24] LABS: BUN/Creatinine Ratio 15; Blood Urea Nitrogen 27 mg/dL (9-20); Calcium 8.6 mg/dL (8.4-10.2); Hemolysis Index 11
--- NOTE | 2020-08-05 02:27 | XRay Report ---
CHEST 1 VIEW INDICATION: sob, chest pain. COMPARISON: None. FINDINGS: Support devices: Cardiac lead projects in expected position. Heart: Enlarged. Lungs/Pleura: No acute pulmonary or pleural findings. IMPRESSION: 1. No acute findings. Signer Name: Minh Acevedo MD Signed: 08/05/2020 2:23 AM Workstation Name: [id number]
[2020-08-05] MEDS ORDERED: dilTIAZem 25 MG/5 ML INJ IV ONE (03:11)
[2020-08-05 03:33] LABS: ABG PH 7.238 pH Units (7.350-7.450)
[2020-08-05 03:42] LABS: ABG Base Excess TNR mmol/L (-2.0-3.0); ABG HCO3 TNR mmol/L (20.0-26.0); ABG Methemoglobin TNR % (0.0-1.5); ABG Oxygen Saturation TNR % (95.0-99.0); ABG PCO2 TNR mm Hg; ABG PO2 TNR mm Hg (80.0-90.0)
[2020-08-05 03:43] LABS: VEN PH TNR (7.320-7.420)
[2020-08-05] MEDS ORDERED: SODIUM CHLORIDE 0.9% 250ML 250 ML IV ONE (03:48)
[2020-08-05] MEDS ORDERED: INSULIN REGULAR, HUMAN 100 UNITS/1 ML IV ONE (03:49)
[2020-08-05] MEDS ORDERED: FUROSEMIDE 40 MG/4 ML INJ IV ONE (03:49)
[2020-08-05] MEDS ORDERED: NITROGLYCERIN 0.4 MG TAB SUBL SL PRN (04:10)
[2020-08-05] MEDS ORDERED: DEXTROSE 50% IN WATER (25GM) 50 ML SYRINGE IV PRN (04:10)
[2020-08-05] MEDS ORDERED: ONDANSETRON 4 MG/2 ML INJ IV PRN (04:15)
[2020-08-05] MEDS ORDERED: ACETAMINOPHEN 325 MG TAB PO PRN (04:15)
[2020-08-05] MEDS ORDERED: hydrALAZINE 20 MG/1 ML INJ IV PRN (04:19)
--- NOTE | 2020-08-05 04:28 | History and Physical Report ---
History of Present Illness Date of examination: 08/05/20 Date of admission: 08/05/20 Chief complaint: Shortness of breath Arrhythmia palpitation Hyperglycemia History of present illness: 64 years old male with history of CHF, A. fib supposed to be on Pradaxa, hypertension, diabetes, chronic kidney disease was brought to the hospital because of difficulty breathing since yesterday night . In the emergency room patient is found to have A. fib with RVR at the rate of 150-200. Patient was given amiodarone 150 mg which converted the rhythm to sinus tach. Patient also complained of some nonspecific chest pain 1-2 associated with mild cough. No other complain. O2 sat found 98% patient just received the first Covid vaccine. Patient denie s any known contact with anyone who has tested positive for COVID-19. In the emergency room patient is found to have's acute CHF exacerbation. Also patient glucose is 508 proBNP [id number], BUN 27 creatinine 1.8. Ketone negative. Chest x-ray shows no acute finding We will put the patient on BiPAP Past History Past Medical History: atrial fib, diabetes, heart failure, hypertension Medications and Allergies Allergies Allergy/AdvReac Type Severity Reaction Status Date / Time penicillin AdvReac Rash Verified 07/25/15 10:42 Home Medications Medication Instructions Recorded Confirmed Last Taken Type Spironolactone 25 mg PO DAILY 10/27/14 02/18/18 01/28/18 History Tamsulosin [Flomax] 0.8 mg PO QHS 10/27/14 02/18/18 01/28/18 History Aspirin [Aspirin EC] 81 mg PO DAILY #30 09/18/17 02/18/18 01/28/18 Rx glipiZIDE [Glucotrol] 10 mg PO BID #60 09/18/17 02/18/18 01/28/18 Rx AtorvaSTATin [Lipitor] 80 mg PO QHS #30 tablet 01/30/18 02/18/18 Unknown Rx Magnesium Oxide 400 mg PO QDAY #10 tablet 02/17/18 02/18/18 02/17/18 Rx Lisinopril [Zestril] 40 mg PO DAILY 02/18/18 02/18/18 Unknown History Active Meds: Active Medications Acetaminophen (Acetaminophen 325 Mg Tab) 650 mg PO Q4H PRN PRN Reason: Pain MILD(1-3)/Fever >100.5/SHELL Albuterol/Ipratropium (Ipratropium/Albuterol Sulfate 3 Ml Ampul.Neb) 1 ampul IH Q6HRT [facility] Aspirin (Aspirin Ec 81 Mg Tab) 81 mg PO DAILY [facility] Atorvastatin Calcium (Atorvastatin 40 Mg Tab) 80 mg PO QHS [facility] Azithromycin (Azithromycin 250 Mg Tab) 250 mg PO QDAY [facility]; Protocol Dextrose (Dextrose 50% In Water (25gm) 50 Ml Syringe) 50 ml IV Q30MIN PRN; Protocol PRN Reason: Hypoglycemia Furosemide (Furosemide 40 Mg/4 Ml Inj) 40 mg IV BID@0600,1800 [facility] Glipizide (Glipizide 10 Mg Tab) 10 mg PO BID [facility] Heparin Sodium (Porcine) (Heparin 5,000 Unit/1 Ml Vial) 5,000 unit SUB-Q Q8HR [facility] Hydralazine HCl (Hydralazine 20 Mg/1 Ml Inj) 10 mg IV Q6H PRN PRN Reason: htn Insulin Glargine (Insulin Glargine 100 Units/Ml) 20 units SUB-Q BID [facility] Insulin Human Lispro (Insulin Lispro 100 Unit/Ml) 0 unit SUB-Q Q6HR [facility]; Protocol Lisinopril (Lisinopril 40 Mg Tab) 40 mg PO DAILY [facility] Magnesium Oxide (Magnesium Oxide 400 Mg Tab) 400 mg PO QDAY [facility] Morphine Sulfate (Morphine 2 Mg/1 Ml Inj) 2 mg IV Q5MIN PRN PRN Reason: Chest Pain unrelieved by NTG Nitroglycerin (Nitroglycerin 0.4 Mg Tab Subl) 0.4 mg SL .Q5MIN PRN PRN Reason: Chest Pain Ondansetron HCl (Ondansetron 4 Mg/2 Ml Inj) 4 mg IV Q8H PRN PRN Reason: Nausea And Vomiting Pantoprazole Sodium (Pantoprazole 40 Mg Tab) 40 mg PO QDAC [facility] Sodium Chloride (Sodium Chloride 0.9% 10 Ml Flush Syringe) 10 ml IV BID [facility] Sodium Chloride (Sodium Chloride 0.9% 10 Ml Flush Syringe) 10 ml IV PRN PRN PRN Reason: LINE FLUSH Sodium Chloride (Sodium Chloride 0.9% 10 Ml Flush Syringe) 10 ml IV BID [facility] Sodium Chloride (Sodium Chloride 0.9% 10 Ml Flush Syringe) 10 ml IV PRN PRN PRN Reason: LINE FLUSH Spironolactone (Spironolactone 25 Mg Tab) 25 mg PO DAILY [facility] Tamsulosin HCl (Tamsulosin 0.4 Mg Cap) 0.8 mg PO QHS [facility] Review of Systems Cardiovascular: chest pain, palpitations, shortness of breath Respiratory: cough, shortness of breath, dyspnea on exertion Exam - Constitutional Vitals: Temp Pulse Resp BP Pulse Ox 98 F 117 H 35 H 135/80 100 08/05/20 01:52 08/05/20 04:12 08/05/20 04:12 08/05/20 04:12 08/05/20 04:12 General appearance: Present: no acute distress, well-nourished - EENT Eyes: Present: PERRL ENT: hearing intact, clear oral mucosa - Neck Neck: Present: supple, normal ROM - Respiratory Respiratory effort: normal Respiratory: bilateral: rales - Cardiovascular Rhythm: irregularly irregular Heart Sounds: Present: S1 & S2. Absent: rub, click - Extremities Extremities: pulses symmetrical, No edema Peripheral Pulses: within normal limits - Abdominal General gastrointestinal: Present: soft, non-tender, non-distended, normal bowel sounds Male genitourinary: Present: normal - Integumentary Integumentary: Present: clear, warm, dry - Musculoskeletal Musculoskeletal: gait normal, strength equal bilaterally - Psychiatric Psychiatric: appropriate mood/affect, intact judgment & insight - Neurologic Neurologic: CNII-XII intact, moves all extremities HEART Score - HEART Score Age: 45-65 Risk factors: > 3 risk factors or hx of atherosclerotic disease Troponin: Troponin T < 0.010 ng/mL (0.00-0.029) 08/05/20 01:47 Troponin: < normal limit Results - Labs CBC & Chem 7: 08/05/20 01:47 08/05/20 01:47 Labs: Laboratory Last Values WBC 7.3 K/mm3 (4.5-11.0) 08/05/20 01:47 RBC 4.10 M/mm3 (3.65-5.03) 08/05/20 01:47 Hgb 11.8 gm/dl (11.8-15.2) 08/05/20 01:47 Hct 37.5 % (35.5-45.6) 08/05/20 01:47 MCV 92 fl (84-94) 08/05/20 01:47 MCH 29 pg (28-32) 08/05/20 01:47 MCHC 32 % (32-34) 08/05/20 01:47 RDW 17.9 % (13.2-15.2) H 08/05/20 01:47 Plt Count 182 K/mm3 (140-440) 08/05/20 01:47 Lymph % (Auto) 40.9 % (13.4-35.0) H 08/05/20 01:47 Mayes % (Auto) 3.9 % (0.0-7.3) 08/05/20 01:47 Eos % (Auto) 0.6 % (0.0-4.3) 08/05/20 01:47 Baso % (Auto) 0.3 % (0.0-1.8) 08/05/20 01:47 Lymph # (Auto) 3.0 K/mm3 (1.2-5.4) 08/05/20 01:47 Mayes # (Auto) 0.3 K/mm3 (0.0-0.8) 08/05/20 01:47 Eos # (Auto) 0.0 K/mm3 (0.0-0.4) 08/05/20 01:47 Baso # (Auto) 0.0 K/mm3 (0.0-0.1) 08/05/20 01:47 Seg Neutrophils % 54.3 % (40.0-70.0) 08/05/20 01:47 Seg Neutrophils # 4.0 K/mm3 (1.8-7.7) 08/05/20 01:47 PT 16.8 Sec. (12.2-14.9) H 08/05/20 01:47 INR 1.36 (0.87-1.13) H 08/05/20 01:47 APTT 34.9 Sec. (24.2-36.6) 08/05/20 01:47 ABG pH 7.372 (7.320-7.450) 08/05/20 03:59 POC ABG pCO2 24.6 mmHg (32.0-48.0) L 08/05/20 03:59 ABG pCO2 TNR 08/05/20 02:43 POC ABG pO2 262.1 mmHg (83-108) H 08/05/20 03:59 ABG pO2 TNR 04/11/21 02:43 POC ABG HCO3 14.0 08/05/20 03:59 ABG HCO3 TNR 08/05/20 02:43 ABG O2 Saturation 99.6 (0-100) 08/05/20 03:59 ABG O2 Content TNR 08/05/20 02:43 POC ABG Base Excess -9.5 08/05/20 03:59 ABG Base Excess TNR 08/05/20 02:43 ABG Hemoglobin 12.4 (12.0-17.5) 08/05/20 03:59 ABG Oxyhemoglobin 99.2 (94-98) H 08/05/20 03:59 ABG Carboxyhemoglobin TNR 08/05/20 02:43 ABG Methemoglobin 0.3 (0.0-1.5) 08/05/20 03:59 ABG Sodium 134.7 mmol/L (136.0-145.0) L 08/05/20 03:59 ABG Potassium 6.1 mmol/L (3.40-4.50) H 08/05/20 03:59 ABG Chloride 103.0 mmol/L (98-107) 08/05/20 03:59 ABG Glucose 589 mg/dL (65-95) H 08/05/20 03:59 VBG pH TNR 08/05/20 02:43 Oxyhemoglobin TNR 08/05/20 02:43 Carboxyhemoglobin 0.1 (0.5-1.5) L 08/05/20 03:59 FiO2 TNR 08/05/20 02:43 FiO2 % 55.0 08/05/20 03:59 Sodium 139 mmol/L (137-145) 08/05/20 01:47 Potassium 4.1 mmol/L (3.6-5.0) 08/05/20 01:47 Chloride 100.1 mmol/L (98-107) 08/05/20 01:47 Carbon Dioxide 16 mmol/L (22-30) L 08/05/20 01:47 Anion Gap 27 mmol/L 08/05/20 01:47 BUN 27 mg/dL (9-20) H 08/05/20 01:47 Creatinine 1.8 mg/dL (0.8-1.3) H 08/05/20 01:47 Estimated GFR 46 ml/min 08/05/20 01:47 BUN/Creatinine Ratio 15 % 08/05/20 01:47 Glucose 508 mg/dL (75-100) H* 08/05/20 01:47 Ketones Quantitative Negative (Negative) 08/05/20 02:43 Calcium 8.6 mg/dL (8.4-10.2) 08/05/20 01:47 Troponin T < 0.010 ng/mL (0.00-0.029) 08/05/20 01:47 NT-Pro-B Natriuret Pep 26247 pg/mL (0-900) H 08/05/20 01:47 Arterial Blood Glucose 589 mg/dL (65-95) H 08/05/20 03:59 Arterial Blood Ionized Calcium 4.6 mg/dL (4.6-5.3) 08/05/20 03:59 - Imaging and Cardiology Chest x-ray: image reviewed Assessment and Plan VTE prophylaxis?: Chemical Plan of care discussed with patient/family: Yes - Patient Problems (1) CHF exacerbation Current Visit: Yes Status: Acute Plan to address problem: Admit the patient to the IMCU. Put the patient on CHF pathway. Lasix 40 mg IV twice daily. DuoNeb by nebulizer every 4 hours as needed. Fluid restriction. We maintain inpatient intake and output. Echocardiogram. Will consult cardiology for further evaluation and treatment (2) Atrial fibrillation with RVR Current Visit: Yes Status: Acute Plan to address problem: Patient got amiodarone 150 mg IV x1 dose. Heart rate is controlled. We monitored the patient. Order echocardiogram and consult cardiology for further evaluation and treatment. We continue home medication (3) Acute respiratory failure Current Visit: Yes Status: Acute Plan to address problem: Patient is on BiPAP. DuoNeb by nebulizer every 4 hours as needed. Will consult pulmonary if needed (4) Hyperglycemia Current Visit: Yes Status: Acute Plan to address problem: We will put the patient on Humalog sliding scale high dose every 6 hours. We also put the patient on Lantus 20 units subcu twice daily. Will consult di abetic education. Recheck CBC BMP in the morning (5) Hypertensive emergency Current Visit: Yes Status: Acute Plan to address problem: Patient already get amiodarone 150 mg IV x1 dose and hydralazine hydralazine 10 mg IV every 6 hours as needed. We will continue the lisinopril 40 mg p.o. daily and aspirin lactone 25 mg p.o. daily . Will consult cardiology for further evaluation (6) Suspected COVID-19 virus infection Current Visit: Yes Status: Acute Plan to address problem: Patient is put on respiratory isolation. Zithromax to 50 mg p.o. daily. We will follow the Covid test. Follow the Covid inflammatory marker. (7) DVT prophylaxis Current Visit: Yes Status: Acute Plan to address problem: Heparin 5000 units subcu every 8 hours for DVT prophylaxis and Protonix 40 mg p.o. daily for GI prophylaxis. Patient is a full code
[2020-08-05] MEDS ORDERED: SODIUM CHLORIDE 0.9% 1000 ML 1,000 ML ONE (04:36)
[2020-08-05 05:07] LABS: Bilirubin,Urine NEG (Negative); Blood,Urine NEG (Negative); Color,Urine Straw (Yellow); Mucus,Urine FEW /HPF; Urobilinogen,Urine < 2.0 mg/dL (<2.0)
[2020-08-05] MEDS: HEPARIN 5,000 UNIT/1 ML VIAL SUB-Q SCH ×3 (06:15→21:36)
[2020-08-05] MEDS: INSULIN LISPRO 100 UNIT/ML SUB-Q SCH ×2 (06:27→12:20)
[2020-08-05] MEDS: IPRATROPIUM/ALBUTEROL SULFATE 3 ML AMPUL.NEB IH SCH ×3 (07:50→20:17)
[2020-08-05] MEDS ORDERED: glipiZIDE 10 MG TAB PO SCH (08:00)
[2020-08-05] MEDS: PANTOPRAZOLE 40 MG TAB PO SCH (08:00)
[2020-08-05 09:07] LABS: C-Reactive Protein 1.7 mg/dL (0.00-1.30)
[2020-08-05] MEDS: LISINOPRIL 40 MG TAB PO SCH (09:37)
[2020-08-05] MEDS: SPIRONOLACTONE 25 MG TAB PO SCH (09:37)
[2020-08-05] MEDS: ASPIRIN EC 81 MG TAB PO SCH (09:37)
[2020-08-05] MEDS: AZITHROMYCIN 250 MG TAB PO SCH (09:37)
[2020-08-05] MEDS: INSULIN GLARGINE 100 UNITS/ML SUB-Q SCH ×2 (09:43→21:34)
[2020-08-05] MEDS ORDERED: MAGNESIUM OXIDE 400 MG TAB PO SCH (10:00)
--- NOTE | 2020-08-05 11:15 | Consultation ---
History of Present Illness - Reason for Consult Consult date: 08/05/20 Afib with RVR and CHF exacerbation - History of Present Illness 64 y/o male with known Systolic Heart Failure admitted with acute onset of shortness of breath. Found to be in afib with RVR in route and given an amio bolus. Rate is improved here but not on any continuous drips. BNP was elevated and was given IV lasix. Patient feels much better today. HR in the low 100's. Per patient he is not on any rate controlling meds. Sitting up in bed in no distress. On nasal cannula with good sats. Remainder is negative. Past History Past Medical History: atrial fib, diabetes, heart failure, hypertension Medications and Allergies Allergies Allergy/AdvReac Type Severity Reaction Status Date / Time penicillin AdvReac Rash Verified 07/25/15 10:42 Home Medications Medication Instructions Recorded Confirmed Last Taken Type Spironolactone 25 mg PO DAILY 10/27/14 02/18/18 01/28/18 History Tamsulosin [Flomax] 0.8 mg PO QHS 10/27/14 02/18/18 01/28/18 History Aspirin [Aspirin EC] 81 mg PO DAILY #30 09/18/17 02/18/18 01/28/18 Rx glipiZIDE [Glucotrol] 10 mg PO BID #60 09/18/17 02/18/18 01/28/18 Rx AtorvaSTATin [Lipitor] 80 mg PO QHS #30 tablet 01/30/18 02/18/18 Unknown Rx Magnesium Oxide 400 mg PO QDAY #10 tablet 02/17/18 02/18/18 02/17/18 Rx Lisinopril [Zestril] 40 mg PO DAILY 02/18/18 02/18/18 Unknown History Active Meds: Active Medications Acetaminophen (Acetaminophen 325 Mg Tab) 650 mg PO Q4H PRN PRN Reason: Pain MILD(1-3)/Fever >100.5/SHELL Albuterol/Ipratropium (Ipratropium/Albuterol Sulfate 3 Ml Ampul.Neb) 1 ampul IH Q6HRT [facility] Last Admin: 08/05/20 07:50 Dose: 1 ampul Documented by: Aspirin (Aspirin Ec 81 Mg Tab) 81 mg PO DAILY [facility] Last Admin: 08/05/20 09:37 Dose: 81 mg Documented by: Atorvastatin Calcium (Atorvastatin 40 Mg Tab) 80 mg PO QHS [facility] Azithromycin (Azithromycin 250 Mg Tab) 250 mg PO QDAY [facility]; Protocol Last Admin: 08/05/20 09:37 Dose: 250 mg Documented by: Dextrose (Dextrose 50% In Water (25gm) 50 Ml Syringe) 50 ml IV Q30MIN PRN; Protocol PRN Reason: Hypoglycemia Furosemide (Furosemide 40 Mg/4 Ml Inj) 40 mg IV BID@0600,1800 [facility] Heparin Sodium (Porcine) (Heparin 5,000 Unit/1 Ml Vial) 5,000 unit SUB-Q Q8HR [facility] Last Admin: 08/05/20 06:15 Dose: 5,000 unit Documented by: Hydralazine HCl (Hydralazine 20 Mg/1 Ml Inj) 10 mg IV Q6H PRN PRN Reason: htn Insulin Glargine (Insulin Glargine 100 Units/Ml) 20 units SUB-Q BID [facility] Last Admin: 08/05/20 09:43 Dose: 20 units Documented by: Insulin Human Lispro (Insulin Lispro 100 Unit/Ml) 0 unit SUB-Q Q6HR [facility]; Protocol Last Admin: 08/05/20 06:27 Dose: 10 unit Documented by: Lisinopril (Lisinopril 40 Mg Tab) 40 mg PO DAILY [facility] Last Admin: 08/05/20 09:37 Dose: 40 mg Documented by: Magnesium Oxide (Magnesium Oxide 400 Mg Tab) 400 mg PO QDAY [facility] Last Admin: 08/05/20 09:38 Dose: 400 mg Documented by: Morphine Sulfate (Morphine 2 Mg/1 Ml Inj) 2 mg IV Q5MIN PRN PRN Reason: Chest Pain unrelieved by NTG Nitroglycerin (Nitroglycerin 0.4 Mg Tab Subl) 0.4 mg SL .Q5MIN PRN PRN Reason: Chest Pain Ondansetron HCl (Ondansetron 4 Mg/2 Ml Inj) 4 mg IV Q8H PRN PRN Reason: Nausea And Vomiting Pantoprazole Sodium (Pantoprazole 40 Mg Tab) 40 mg PO QDAC [facility] Last Admin: 08/05/20 08:00 Dose: 40 mg Documented by: Sodium Chloride (Sodium Chloride 0.9% 10 Ml Flush Syringe) 10 ml IV BID [facility] Last Admin: 08/05/20 09:43 Dose: 10 ml Documented by: Sodium Chloride (Sodium Chloride 0.9% 10 Ml Flush Syringe) 10 ml IV PRN PRN PRN Reason: LINE FLUSH Spironolactone (Spironolactone 25 Mg Tab) 25 mg PO DAILY [facility] Last Admin: 08/05/20 09:37 Dose: 25 mg Documented by: Tamsulosin HCl (Tamsulosin 0.4 Mg Cap) 0.8 mg PO QHS [facility] Review of Systems All systems: negative Exam - Constitutional Vitals: Temp Pulse Resp BP Pulse Ox 97.9 F 111 H 20 125/80 100 08/05/20 07:22 08/05/20 09:37 08/05/20 08:48 08/05/20 09:37 08/05/20 08:48 General appearance: Present: no acute distress, well-nourished, obese - EENT Eyes: Present: PERRL, EOM intact ENT: hearing intact, clear oral mucosa - Neck Neck: Present: supple, normal ROM - Respiratory Respiratory effort: normal Respiratory: bilateral: CTA Results - Labs CBC & Chem 7: 08/05/20 01:47 08/05/20 01:47 Labs: Abnormal lab results 08/05/20 08/05/20 08/05/20 Range/Units 01:47 01:47 01:47 RDW 17.9 H (13.2-15.2) % Lymph % (Auto) 40.9 H (13.4-35.0) % PT 16.8 H (12.2-14.9) Sec. INR 1.36 H (0.87-1.13) D-Dimer (0-234) ng/mlDDU ABG pH (7.350-7.450) pH Units POC ABG pCO2 (32.0-48.0) mmHg POC ABG pO2 (83-108) mmHg ABG Oxyhemoglobin (94-98) ABG Sodium (136.0-145.0) mmol/L ABG Potassium (3.40-4.50) mmol/L ABG Glucose (65-95) mg/dL Carboxyhemoglobin (0.5-1.5) Carbon Dioxide 16 L (22-30) mmol/L BUN 27 H (9-20) mg/dL Creatinine 1.8 H (0.8-1.3) mg/dL Glucose 508 H* (75-100) mg/dL Ferritin (30.0-300.0) ng/mL Lactate Dehydrogenase (91-180) units/L C-Reactive Protein (0.00-1.30) mg/dL NT-Pro-B Natriuret Pep 17450 H (0-900) pg/mL Arterial Blood Glucose (65-95) mg/dL 08/05/20 08/05/20 08/05/20 Range/Units 02:43 03:59 08:04 RDW (13.2-15.2) % Lymph % (Auto) (13.4-35.0) % PT (12.2-14.9) Sec. INR (0.87-1.13) D-Dimer 1308.98 H (0-234) ng/mlDDU ABG pH 7.238 L (7.350-7.450) pH Units POC ABG pCO2 24.6 L (32.0-48.0) mmHg POC ABG pO2 262.1 H (83-108) mmHg ABG Oxyhemoglobin 99.2 H (94-98) ABG Sodium 134.7 L (136.0-145.0) mmol/L ABG Potassium 6.1 H (3.40-4.50) mmol/L ABG Glucose 589 H (65-95) mg/dL Carboxyhemoglobin 0.1 L (0.5-1.5) Carbon Dioxide (22-30) mmol/L BUN (9-20) mg/dL Creatinine (0.8-1.3) mg/dL Glucose (75-100) mg/dL Ferritin (30.0-300.0) ng/mL Lactate Dehydrogenase (91-180) units/L C-Reactive Protein (0.00-1.30) mg/dL NT-Pro-B Natriuret Pep (0-900) pg/mL Arterial Blood Glucose 589 H (65-95) mg/dL 08/05/20 08/05/20 Range/Units 08:04 08:04 RDW (13.2-15.2) % Lymph % (Auto) (13.4-35.0) % PT (12.2-14.9) Sec. INR (0.87-1.13) D-Dimer (0-234) ng/mlDDU ABG pH (7.350-7.450) pH Units POC ABG pCO2 (32.0-48.0) mmHg POC ABG pO2 (83-108) mmHg ABG Oxyhemoglobin (94-98) ABG Sodium (136.0-145.0) mmol/L ABG Potassium (3.40-4.50) mmol/L ABG Glucose (65-95) mg/dL Carboxyhemoglobin (0.5-1.5) Carbon Dioxide (22-30) mmol/L BUN (9-20) mg/dL Creatinine (0.8-1.3) mg/dL Glucose (75-100) mg/dL Ferritin 3925.0 H (30.0-300.0) ng/mL Lactate Dehydrogenase 468 H (91-180) units/L C-Reactive Protein 1.70 H (0.00-1.30) mg/dL NT-Pro-B Natriuret Pep (0-900) pg/mL Arterial Blood Glucose (65-95) mg/dL - Imaging and Cardiology Chest x-ray: image reviewed Assessment and Plan 64 y/o male with afib with RVR, and CHF exacerbation. 1. From a critical care standpoint, stable. Not on any continuous infusions and clinically improved. Spoke with [facility] who will see the patient. Asked IMS to transfer to floor. Follow up renal function and need to check old admission, not sure if this is acute or chronic but can be worked up by primary if needed.
--- NOTE | 2020-08-05 11:40 | Consultation ---
History of Present Illness Consult date: 08/05/20 Requesting physician: MICHAEL ROBERTS Consult reason: atrial fibrillation, congestive heart failure History of present illness: 64 years old male with history of chronic HFrEF 20%, A. fib (Pradaxa), hypertension, diabetes, chronic kidney disease was brought to the hospital because of difficulty breathing for 2 days. In the emergency room patient is found to have A. fib with RVR at the rate of 150-200. Patient was given amiodarone 150 mg which converted the rhythm to sinus tach. Patient also complained of some nonspecific chest pain 1-2 / 10 associated with mild cough. No other complain. In ED patient O2 sat 98%. Patient denies any known contact with anyone who has tested positive for COVID-19. Also patient glucose is 508, proBNP 85188, BUN 27 creatinine 1.8. Ketone negative. Patient placed on BIPAP. Past History Past Medical History: atrial fib, diabetes, heart failure, hypertension Medications and Allergies Allergies Allergy/AdvReac Type Severity Reaction Status Date / Time penicillin AdvReac Rash Verified 07/25/15 10:42 Home Medications Medication Instructions Recorded Confirmed Last Taken Type Spironolactone 25 mg PO DAILY 10/27/14 02/18/18 01/28/18 History Tamsulosin [Flomax] 0.8 mg PO QHS 10/27/14 02/18/18 01/28/18 History Aspirin [Aspirin EC] 81 mg PO DAILY #30 09/18/17 02/18/18 01/28/18 Rx glipiZIDE [Glucotrol] 10 mg PO BID #60 09/18/17 02/18/18 01/28/18 Rx AtorvaSTATin [Lipitor] 80 mg PO QHS #30 tablet 01/30/18 02/18/18 Unknown Rx Magnesium Oxide 400 mg PO QDAY #10 tablet 02/17/18 02/18/18 02/17/18 Rx Lisinopril [Zestril] 40 mg PO DAILY 02/18/18 02/18/18 Unknown History Active Meds: Active Medications Acetaminophen (Acetaminophen 325 Mg Tab) 650 mg PO Q4H PRN PRN Reason: Pain MILD(1-3)/Fever >100.5/SHELL Albuterol/Ipratropium (Ipratropium/Albuterol Sulfate 3 Ml Ampul.Neb) 1 ampul IH Q6HRT [facility] Last Admin: 08/05/20 07:50 Dose: 1 ampul Documented by: Aspirin (Aspirin Ec 81 Mg Tab) 81 mg PO DAILY [facility] Last Admin: 08/05/20 09:37 Dose: 81 mg Documented by: Atorvastatin Calcium (Atorvastatin 40 Mg Tab) 80 mg PO QHS [facility] Azithromycin (Azithromycin 250 Mg Tab) 250 mg PO QDAY [facility]; Protocol Last Admin: 08/05/20 09:37 Dose: 250 mg Documented by: Dextrose (Dextrose 50% In Water (25gm) 50 Ml Syringe) 50 ml IV Q30MIN PRN; Protocol PRN Reason: Hypoglycemia Furosemide (Furosemide 40 Mg/4 Ml Inj) 40 mg IV BID@0600,1800 [facility] Heparin Sodium (Porcine) (Heparin 5,000 Unit/1 Ml Vial) 5,000 unit SUB-Q Q8HR [facility] Last Admin: 08/05/20 06:15 Dose: 5,000 unit Documented by: Hydralazine HCl (Hydralazine 20 Mg/1 Ml Inj) 10 mg IV Q6H PRN PRN Reason: htn Insulin Glargine (Insulin Glargine 100 Units/Ml) 20 units SUB-Q BID [facility] Last Admin: 08/05/20 09:43 Dose: 20 units Documented by: Insulin Human Lispro (Insulin Lispro 100 Unit/Ml) 0 unit SUB-Q Q6HR [facility]; Protocol Last Admin: 08/05/20 06:27 Dose: 10 unit Documented by: Lisinopril (Lisinopril 40 Mg Tab) 40 mg PO DAILY [facility] Last Admin: 08/05/20 09:37 Dose: 40 mg Documented by: Magnesium Oxide (Magnesium Oxide 400 Mg Tab) 400 mg PO QDAY [facility] Last Admin: 08/05/20 09:38 Dose: 400 mg Documented by: Morphine Sulfate (Morphine 2 Mg/1 Ml Inj) 2 mg IV Q5MIN PRN PRN Reason: Chest Pain unrelieved by NTG Nitroglycerin (Nitroglycerin 0.4 Mg Tab Subl) 0.4 mg SL .Q5MIN PRN PRN Reason: Chest Pain Ondansetron HCl (Ondansetron 4 Mg/2 Ml Inj) 4 mg IV Q8H PRN PRN Reason: Nausea And Vomiting Pantoprazole Sodium (Pantoprazole 40 Mg Tab) 40 mg PO QDAC [facility] Last Admin: 08/05/20 08:00 Dose: 40 mg Documented by: Sodium Chloride (Sodium Chloride 0.9% 10 Ml Flush Syringe) 10 ml IV BID [facility] Last Admin: 08/05/20 09:43 Dose: 10 ml Documented by: Sodium Chloride (Sodium Chloride 0.9% 10 Ml Flush Syringe) 10 ml IV PRN PRN PRN Reason: LINE FLUSH Spironolactone (Spironolactone 25 Mg Tab) 25 mg PO DAILY [facility] Last Admin: 08/05/20 09:37 Dose: 25 mg Documented by: Tamsulosin HCl (Tamsulosin 0.4 Mg Cap) 0.8 mg PO QHS [facility] Review of Systems Constitutional: weight gain, no fever, no chills Cardiovascular: chest pain, orthopnea, dyspnea on exertion Respiratory: shortness of breath Gastrointestinal: no nausea, no vomiting, no diarrhea Genitourinary Male: no hematuria, no flank pain Physical Examination Vital Signs Pulse Resp Pulse Ox 129 H 43 H 100 08/05/20 01:51 08/05/20 01:51 08/05/20 01:51 General appearance: no acute distress HEENT: Positive: PERRL Neck: Positive: neck supple Cardiac: Positive: Irregularly Regular, Tachycardia Lungs: Positive: Decreased Breath Sounds Neuro: Positive: Grossly Intact Abdomen: Positive: Soft, Active Bowel Sounds Male genitourinary: Positive: deferred Skin: Negative: Rash Extremities: Present: edema, warm Results 08/05/20 01:47 08/05/20 01:47 Cardiac Enzymes 08/05/20 Range/Units 08:04 Lactate Dehydrogenase 468 H (91-180) units/L Coagulation 08/05/20 Range/Units 01:47 PT 16.8 H (12.2-14.9) Sec. INR 1.36 H (0.87-1.13) APTT 34.9 (24.2-36.6) Sec. CBC 08/05/20 Range/Units 01:47 WBC 7.3 (4.5-11.0) K/mm3 RBC 4.10 (3.65-5.03) M/mm3 Hgb 11.8 (11.8-15.2) gm/dl Hct 37.5 (35.5-45.6) % Plt Count 182 (140-440) K/mm3 Lymph # (Auto) 3.0 (1.2-5.4) K/mm3 [place] # (Auto) 0.3 (0.0-0.8) K/mm3 Eos # (Auto) 0.0 (0.0-0.4) K/mm3 Baso # (Auto) 0.0 (0.0-0.1) K/mm3 Comprehensive Metabolic Panel 08/05/20 Range/Units 01:47 Sodium 139 (137-145) mmol/L Potassium 4.1 (3.6-5.0) mmol/L Chloride 100.1 (98-107) mmol/L Carbon Dioxide 16 L (22-30) mmol/L BUN 27 H (9-20) mg/dL Creatinine 1.8 H (0.8-1.3) mg/dL Glucose 508 H* (75-100) mg/dL Calcium 8.6 (8.4-10.2) mg/dL EKG interpretations - Telemetry EKG Rhythm: Atrial Fibrillation Assessment and Plan 64 Male Acute on chronic HFrEF 20% AFIB RVR Atrial fibrillation (Pradaxa) Hypertension CKD Diabetes [facility] 07/04/19: Right dominant, 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
[2020-08-05] MEDS: TAMSULOSIN 0.4 MG CAP PO SCH ×2 (12:15→21:35)
[2020-08-05] MEDS: carvediloL 6.25 MG TAB PO SCH ×2 (12:20→21:35)
[2020-08-05] MEDS: FUROSEMIDE 40 MG/4 ML INJ IV SCH (18:32)
[2020-08-06] MEDS: INSULIN LISPRO 100 UNIT/ML SUB-Q SCH ×4 (00:01→12:50)
[2020-08-06] MEDS: IPRATROPIUM/ALBUTEROL SULFATE 3 ML AMPUL.NEB IH SCH ×4 (02:18→20:24)
[2020-08-06] MEDS: FUROSEMIDE 40 MG/4 ML INJ IV SCH (06:11)
[2020-08-06] MEDS: HEPARIN 5,000 UNIT/1 ML VIAL SUB-Q SCH ×3 (06:11→21:39)
[2020-08-06] MEDS: PANTOPRAZOLE 40 MG TAB PO SCH (08:12)
[2020-08-06 08:17] LABS: Calcium 8.9 mg/dL (8.4-10.2)
--- NOTE | 2020-08-06 08:30 | Progress Note ---
Assessment and Plan 64 y/o male with afib with RVR, and CHF exacerbation. 08/06/20: Renal function improving. Appreciate cards help with meds and follow up for outpatient status. Agree with transfer to floor. Will sign off. Call if questions. 1. From a critical care standpoint, stable. Not on any continuous infusions and clinically improved. Spoke with [facility] who will see the patient. Asked IMS to transfer to floor. Follow up renal function and need to check old admission, not sure if this is acute or chronic but can be worked up by primary if needed. Subjective Date of service: 08/06/20 Interval history: Transfer orders placed yesterday but no beds available. Now has a bed this morning. Remainder is negative. Appreciate Cards seeing patient on yesterday. Objective Vital Signs - 12hr 08/05/20 08/05/20 08/05/20 21:35 23:20 23:30 Temperature Pulse Rate 100 H 99 H 96 H Pulse Rate [ From Monitor] Pulse Rate [ Posterior Bilateral Throughout] Respiratory 20 14 Rate Respiratory Rate [Posterior Bilateral Throughout] Blood Pressure 107/47 107/51 107/51 O2 Sat by Pulse 97 100 Oximetry 08/05/20 08/05/20 08/06/20 23:40 23:50 00:00 Temperature 98.6 F Pulse Rate 83 83 84 Pulse Rate [ 88 From Monitor] Pulse Rate [ Posterior Bilateral Throughout] Respiratory 17 15 17 Rate Respiratory Rate [Posterior Bilateral Throughout] Blood Pressure 107/51 107/51 88/56 O2 Sat by Pulse 99 100 98 Oximetry 08/06/20 08/06/20 08/06/20 00:10 00:20 00:30 Temperature Pulse Rate 90 111 H 92 H Pulse Rate [ From Monitor] Pulse Rate [ Posterior Bilateral Throughout] Respiratory 16 20 19 Rate Respiratory Rate [Posterior Bilateral Throughout] Blood Pressure 93/53 93/53 93/53 O2 Sat by Pulse 100 99 100 Oximetry 08/06/20 08/06/20 08/06/20 00:40 00:50 01:00 Temperature Pulse Rate 90 95 H 86 Pulse Rate [ From Monitor] Pulse Rate [ Posterior Bilateral Throughout] Respiratory 14 15 19 Rate Respiratory Rate [Posterior Bilateral Throughout] Blood Pressure 93/53 93/53 93/53 O2 Sat by Pulse 96 99 97 Oximetry 08/06/20 08/06/20 08/06/20 01:10 01:20 01:30 Temperature Pulse Rate 84 86 84 Pulse Rate [ From Monitor] Pulse Rate [ Posterior Bilateral Throughout] Respiratory 18 15 14 Rate Respiratory Rate [Posterior Bilateral Throughout] Blood Pressure 84/60 84/60 O2 Sat by Pulse 98 97 99 Oximetry 08/06/20 08/06/20 08/06/20 01:40 01:50 02:00 Temperature Pulse Rate 90 93 H 77 Pulse Rate [ From Monitor] Pulse Rate [ Posterior Bilateral Throughout] Respiratory 20 14 11 L Rate Respiratory Rate [Posterior Bilateral Throughout] Blood Pressure 84/60 84/60 94/52 O2 Sat by Pulse 98 98 99 Oximetry 08/06/20 08/06/20 08/06/20 02:10 02:15 02:20 Temperature Pulse Rate 88 93 H Pulse Rate [ From Monitor] Pulse Rate [ 920 H Posterior Bilateral Throughout] Respiratory 14 13 Rate Respiratory 16 Rate [Posterior Bilateral Throughout] Blood Pressure 94/52 94/52 O2 Sat by Pulse 100 99 Oximetry 08/06/20 08/06/20 08/06/20 02:30 02:40 02:50 Temperature Pulse Rate 72 73 74 Pulse Rate [ From Monitor] Pulse Rate [ Posterior Bilateral Throughout] Respiratory 16 13 15 Rate Respiratory Rate [Posterior Bilateral Throughout] Blood Pressure 94/52 94/52 94/52 O2 Sat by Pulse 98 99 97 Oximetry 08/06/20 08/06/20 08/06/20 03:00 03:10 03:20 Temperature Pulse Rate 92 H 83 81 Pulse Rate [ From Monitor] Pulse Rate [ Posterior Bilateral Throughout] Respiratory 15 17 16 Rate Respiratory Rate [Posterior Bilateral Throughout] Blood Pressure 104/53 104/53 104/53 O2 Sat by Pulse 95 98 98 Oximetry 08/06/20 08/06/20 08/06/20 03:30 03:40 03:50 Temperature Pulse Rate 81 78 76 Pulse Rate [ From Monitor] Pulse Rate [ Posterior Bilateral Throughout] Respiratory 17 15 15 Rate Respiratory Rate [Posterior Bilateral Throughout] Blood Pressure 104/53 104/53 104/53 O2 Sat by Pulse 98 97 98 Oximetry 08/06/20 08/06/20 08/06/20 04:00 04:10 04:20 Temperature 98.7 F Pulse Rate 76 94 H 94 H Pulse Rate [ 94 H From Monitor] Pulse Rate [ Posterior Bilateral Throughout] Respiratory 15 15 18 Rate Respiratory Rate [Posterior Bilateral Throughout] Blood Pressure 98/51 98/51 98/51 O2 Sat by Pulse 97 95 98 Oximetry 08/06/20 08/06/20 08/06/20 04:30 04:40 04:50 Temperature Pulse Rate 83 73 81 Pulse Rate [ From Monitor] Pulse Rate [ Posterior Bilateral Throughout] Respiratory 16 15 15 Rate Respiratory Rate [Posterior Bilateral Throughout] Blood Pressure 98/51 98/51 98/51 O2 Sat by Pulse 97 97 97 Oximetry 08/06/20 08/06/20 08/06/20 05:00 05:10 05:20 Temperature Pulse Rate 77 81 115 H Pulse Rate [ From Monitor] Pulse Rate [ Posterior Bilateral Throughout] Respiratory 15 14 18 Rate Respiratory Rate [Posterior Bilateral Throughout] Blood Pressure 105/54 105/54 105/54 O2 Sat by Pulse 95 96 97 Oximetry 08/06/20 08/06/20 08/06/20 05:30 05:40 05:50 Temperature Pulse Rate 88 93 H 95 H Pulse Rate [ From Monitor] Pulse Rate [ Posterior Bilateral Throughout] Respiratory 16 15 17 Rate Respiratory Rate [Posterior Bilateral Throughout] Blood Pressure 105/54 105/54 105/54 O2 Sat by Pulse 96 95 99 Oximetry 08/06/20 08/06/20 08/06/20 06:00 06:10 06:20 Temperature Pulse Rate 88 79 91 H Pulse Rate [ From Monitor] Pulse Rate [ Posterior Bilateral Throughout] Respiratory 15 12 12 Rate Respiratory Rate [Posterior Bilateral Throughout] Blood Pressure 105/54 97/61 97/61 O2 Sat by Pulse 98 96 97 Oximetry 08/06/20 08/06/20 08/06/20 06:30 06:40 06:50 Temperature Pulse Rate 109 H 108 H 117 H Pulse Rate [ From Monitor] Pulse Rate [ Posterior Bilateral Throughout] Respiratory 15 18 13 Rate Respiratory Rate [Posterior Bilateral Throughout] Blood Pressure 97/61 97/61 97/61 O2 Sat by Pulse 97 98 97 Oximetry 08/06/20 08/06/20 08/06/20 07:00 07:10 07:20 Temperature Pulse Rate 95 H 100 H 96 H Pulse Rate [ From Monitor] Pulse Rate [ Posterior Bilateral Throughout] Respiratory 15 17 13 Rate Respiratory Rate [Posterior Bilateral Throughout] Blood Pressure 109/67 109/67 109/67 O2 Sat by Pulse 94 98 99 Oximetry 08/06/20 08/06/20 08/06/20 07:30 07:35 07:40 Temperature Pulse Rate 95 H 95 H 102 H Pulse Rate [ 95 H From Monitor] Pulse Rate [ Posterior Bilateral Throughout] Respiratory 15 16 17 Rate Respiratory Rate [Posterior Bilateral Throughout] Blood Pressure 109/67 109/67 O2 Sat by Pulse 98 98 100 Oximetry 08/06/20 08/06/20 07:50 08:00 Temperature Pulse Rate 101 H 97 H Pulse Rate [ From Monitor] Pulse Rate [ Posterior Bilateral Throughout] Respiratory 13 15 Rate Respiratory Rate [Posterior Bilateral Throughout] Blood Pressure 109/67 105/61 O2 Sat by Pulse 97 Oximetry CBC and BMP: 08/05/20 01:47 08/06/20 07:16 ABG, PT/INR, D-dimer: ABG ABG pH 7.372 (7.320-7.450) 08/05/20 03:59 POC ABG pCO2 24.6 mmHg (32.0-48.0) L 08/05/20 03:59 ABG pCO2 TNR 08/05/20 02:43 POC ABG pO2 262.1 mmHg (83-108) H 08/05/20 03:59 ABG pO2 TNR 08/05/20 02:43 POC ABG HCO3 14.0 08/05/20 03:59 ABG O2 Saturation 99.6 (0-100) 08/05/20 03:59 PT/INR, D-dimer PT 16.8 Sec. (12.2-14.9) H 08/05/20 01:47 INR 1.36 (0.87-1.13) H 08/05/20 01:47 D-Dimer 1308.98 ng/mlDDU (0-234) H 08/05/20 08:04 Abnormal lab findings: Abnormal Labs 08/05/20 08/05/20 08/05/20 01:47 01:47 01:47 RDW 17.9 H Lymph % (Auto) 40.9 H PT 16.8 H INR 1.36 H D-Dimer ABG pH POC ABG pCO2 POC ABG pO2 ABG Oxyhemoglobin ABG Sodium ABG Potassium ABG Glucose Carboxyhemoglobin Carbon Dioxide 16 L BUN 27 H Creatinine 1.8 H Glucose 508 H* POC Glucose Hemoglobin A1c Ferritin Lactate Dehydrogenase C-Reactive Protein NT-Pro-B Natriuret Pep 51406 H Arterial Blood Glucose 08/05/20 08/05/20 08/05/20 02:43 03:59 06:04 RDW Lymph % (Auto) PT INR D-Dimer ABG pH 7.238 L POC ABG pCO2 24.6 L POC ABG pO2 262.1 H ABG Oxyhemoglobin 99.2 H ABG Sodium 134.7 L ABG Potassium 6.1 H ABG Glucose 589 H Carboxyhemoglobin 0.1 L Carbon Dioxide BUN Creatinine Glucose POC Glucose 389 H Hemoglobin A1c Ferritin Lactate Dehydrogenase C-Reactive Protein NT-Pro-B Natriuret Pep Arterial Blood Glucose 589 H 08/05/20 08/05/20 08/05/20 08:04 08:04 08:04 RDW Lymph % (Auto) PT INR D-Dimer 1308.98 H ABG pH POC ABG pCO2 POC ABG pO2 ABG Oxyhemoglobin ABG Sodium ABG Potassium ABG Glucose Carboxyhemoglobin Carbon Dioxide BUN Creatinine Glucose POC Glucose Hemoglobin A1c Ferritin 3925.0 H Lactate Dehydrogenase 468 H C-Reactive Protein 1.70 H NT-Pro-B Natriuret Pep Arterial Blood Glucose 08/05/20 08/05/20 08/05/20 10:12 11:38 14:25 RDW Lymph % (Auto) PT INR D-Dimer ABG pH POC ABG pCO2 POC ABG pO2 ABG Oxyhemoglobin ABG Sodium ABG Potassium ABG Glucose Carboxyhemoglobin Carbon Dioxide BUN Creatinine Glucose POC Glucose 262 H 192 H Hemoglobin A1c 8.2 H Ferritin Lactate Dehydrogenase C-Reactive Protein NT-Pro-B Natriuret Pep Arterial Blood Glucose 08/05/20 08/05/20 08/05/20 18:25 21:33 23:15 RDW Lymph % (Auto) PT INR D-Dimer ABG pH POC ABG pCO2 POC ABG pO2 ABG Oxyhemoglobin ABG Sodium ABG Potassium ABG Glucose Carboxyhemoglobin Carbon Dioxide BUN Creatinine Glucose POC Glucose 137 H 129 H 144 H Hemoglobin A1c Ferritin Lactate Dehydrogenase C-Reactive Protein NT-Pro-B Natriuret Pep Arterial Blood Glucose 08/06/20 07:16 RDW Lymph % (Auto) PT INR D-Dimer ABG pH POC ABG pCO2 POC ABG pO2 ABG Oxyhemoglobin ABG Sodium ABG Potassium ABG Glucose Carboxyhemoglobin Carbon Dioxide BUN 30 H Creatinine 1.6 H Glucose 156 H POC Glucose Hemoglobin A1c Ferritin Lactate Dehydrogenase C-Reactive Protein NT-Pro-B Natriuret Pep Arterial Blood Glucose
[2020-08-06] MEDS: ASPIRIN EC 81 MG TAB PO SCH (10:43)
[2020-08-06] MEDS: carvediloL 6.25 MG TAB PO SCH (10:43)
[2020-08-06] MEDS: SPIRONOLACTONE 25 MG TAB PO SCH (10:43)
[2020-08-06] MEDS: LISINOPRIL 40 MG TAB PO SCH (10:43)
[2020-08-06] MEDS: AZITHROMYCIN 250 MG TAB PO SCH (10:43)
[2020-08-06] MEDS: INSULIN GLARGINE 100 UNITS/ML SUB-Q SCH ×2 (10:44→21:43)
--- NOTE | 2020-08-06 12:42 | Progress Note ---
Assessment and Plan Assessment and plan: 64 years old male with history of CHF, A. fib supposed to be on Pradaxa, hypertension, diabetes, chronic kidney disease was brought to the hospital because of difficulty breathing since yesterday night . In the emergency room patient is found to have A. fib with RVR at the rate of 150-200. Patient was given amiodarone 150 mg which converted the rhythm to sinus tach. Patient also complained of some nonspecific chest pain 1-2 / 10 associated with mild cough. No other complain. O2 sat found 98% patient just received the first Covid vaccine. Patient denies any known contact with anyone who has tested positive for COVID-19. In the emergency room patient is found to have's acute CHF exacerbation. Also patient glucose is 508 proBNP 66798, BUN 27 creatinine 1.8. Ketone negative. Chest x-ray shows no acute finding We will put the patient on BiPAP 08/06: Patient clinically improving, renal function improving, continue fluiod restrictions, agree with downgrade, no evidence of edema noted, will change to PO lasix in the mean time. AWAIT further cardiology input. - Patient Problems (1) CHF exacerbation Current Visit: Yes Status: Acute Plan to address problem: Admit the patient to the IMCU. Put the patient on CHF pathway. Lasix 40 mg IV twice daily. DuoNeb by nebulizer every 4 hours as needed. Fluid restriction. We maintain inpatient intake and output. Echocardiogram. Will consult cardiology for further evaluation and treatment (2) Atrial fibrillation with RVR Current Visit: Yes Status: Acute Plan to address problem: Patient got amiodarone 150 mg IV x1 dose. Heart rate is controlled. We monitored the patient. Order echocardiogram and consult cardiology for further evaluation and treatment. We continue home medication (3) Acute respiratory failure Current Visit: Yes Status: Acute Plan to address problem: Patient is on BiPAP. DuoNeb by nebulizer every 4 hours as needed. Will consult pulmonary if needed (4) Hyperglycemia Current Visit: Yes Status: Acute Plan to address problem: We will put the patient on Humalog sliding scale high dose every 6 hours. We also put the patient on Lantus 20 units subcu twice daily. Will consult diabetic education. Recheck CBC BMP in the morning (5) Hypertensive emergency Current Visit: Yes Status: Acute Plan to address problem: Patient already get amiodarone 150 mg IV x1 dose and hydralazine hydralazine 10 mg IV every 6 hours as needed. We will continue the lisinopril 40 mg p.o. daily and aspirin lactone 25 mg p.o. daily . Will consult cardiology for further evaluation (6) Suspected COVID-19 virus infection Current Visit: Yes Status: Acute Plan to address problem: Patient is put on respiratory isolation. Zithromax to 50 mg p.o. daily. We will follow the Covid test. Follow the Covid inflammatory marker. (7) DVT prophylaxis Current Visit: Yes Status: Acute Plan to address problem: Heparin 5000 units subcu every 8 hours for DVT prophylaxis and Protonix 40 mg p.o. daily for GI prophylaxis. Patient is a full code History Interval history: Patient seen and examined, no new compliants reported at this time. Hospitalist Physical - Constitutional Vitals: Temp Pulse Resp BP Pulse Ox 98.2 F 94 H 18 92/51 95 08/06/20 10:58 08/06/20 10:58 08/06/20 10:58 08/06/20 10:58 08/06/20 10:58 General appearance: Present: no acute distress, well-nourished - EENT Eyes: Present: PERRL ENT: hearing intact - Neck Neck: Present: supple, normal ROM - Respiratory Respiratory effort: normal Respiratory: bilateral: CTA - Cardiovascular Rhythm: regular Heart Sounds: Present: S1 & S2. Absent: systolic murmur, diastolic murmur - Extremities Extremities: no ischemia, pulses intact, pulses symmetrical, No edema, normal temperature, normal color, Full ROM Peripheral Pulses: within normal limits - Abdominal General gastrointestinal: soft, non-tender, non-distended, normal bowel sounds - Integumentary Integumentary: Present: clear, warm - Psychiatric Psychiatric: appropriate mood/affect, intact judgment & insight - Neurologic Neurologic: CNII-XII intact, moves all extremities - Allied Health Allied health notes reviewed: nursing HEART Score - HEART Score Age: 45-65 Risk factors: > 3 risk factors or hx of atherosclerotic disease Troponin: Troponin T < 0.010 ng/mL (0.00-0.029) 08/05/20 01:47 Troponin: < normal limit Results - Labs CBC & Chem 7: 08/05/20 01:47 08/06/20 07:16 Labs: Laboratory Last Values WBC 7.3 K/mm3 (4.5-11.0) 08/05/20 01:47 RBC 4.10 M/mm3 (3.65-5.03) 08/05/20 01:47 Hgb 11.8 gm/dl (11.8-15.2) 08/05/20 01:47 Hct 37.5 % (35.5-45.6) 08/05/20 01:47 MCV 92 fl (84-94) 08/05/20 01:47 MCH 29 pg (28-32) 08/05/20 01:47 MCHC 32 % (32-34) 08/05/20 01:47 RDW 17.9 % (13.2-15.2) H 08/05/20 01:47 Plt Count 182 K/mm3 (140-440) 08/05/20 01:47 Lymph % (Auto) 40.9 % (13.4-35.0) H 08/05/20 01:47 [place] % (Auto) 3.9 % (0.0-7.3) 08/05/20 01:47 Eos % (Auto) 0.6 % (0.0-4.3) 08/05/20 01:47 Baso % (Auto) 0.3 % (0.0-1.8) 08/05/20 01:47 Lymph # (Auto) 3.0 K/mm3 (1.2-5.4) 08/05/20 01:47 [place] # (Auto) 0.3 K/mm3 (0.0-0.8) 08/05/20 01:47 Eos # (Auto) 0.0 K/mm3 (0.0-0.4) 08/05/20 01:47 Baso # (Auto) 0.0 K/mm3 (0.0-0.1) 08/05/20 01:47 Seg Neutrophils % 54.3 % (40.0-70.0) 08/05/20 01:47 Seg Neutrophils # 4.0 K/mm3 (1.8-7.7) 08/05/20 01:47 PT 16.8 Sec. (12.2-14.9) H 08/05/20 01:47 INR 1.36 (0.87-1.13) H 08/05/20 01:47 APTT 34.9 Sec. (24.2-36.6) 08/05/20 01:47 D-Dimer 1308.98 ng/mlDDU (0-234) H 08/05/20 08:04 ABG pH 7.372 (7.320-7.450) 08/05/20 03:59 POC ABG pCO2 24.6 mmHg (32.0-48.0) L 08/05/20 03:59 ABG pCO2 TNR 08/05/20 02:43 POC ABG pO2 262.1 mmHg (83-108) H 08/05/20 03:59 ABG pO2 TNR 08/05/20 02:43 POC ABG HCO3 14.0 08/05/20 03:59 ABG HCO3 TNR 08/05/20 02:43 ABG O2 Saturation 99.6 (0-100) 08/05/20 03:59 ABG O2 Content TNR 08/05/20 02:43 POC ABG Base Excess -9.5 08/05/20 03:59 ABG Base Excess TNR 08/05/20 02:43 ABG Hemoglobin 12.4 (12.0-17.5) 08/05/20 03:59 ABG Oxyhemoglobin 99.2 (94-98) H 08/05/20 03:59 ABG Carboxyhemoglobin TNR 08/05/20 02:43 ABG Methemoglobin 0.3 (0.0-1.5) 08/05/20 03:59 ABG Sodium 134.7 mmol/L (136.0-145.0) L 08/05/20 03:59 ABG Potassium 6.1 mmol/L (3.40-4.50) H 08/05/20 03:59 ABG Chloride 103.0 mmol/L (98-107) 08/05/20 03:59 ABG Glucose 589 mg/dL (65-95) H 08/05/20 03:59 VBG pH TNR 08/05/20 02:43 Oxyhemoglobin TNR 08/05/20 02:43 Carboxyhemoglobin 0.1 (0.5-1.5) L 08/05/20 03:59 FiO2 TNR 08/05/20 02:43 FiO2 % 55.0 08/05/20 03:59 Sodium 139 mmol/L (137-145) 08/06/20 07:16 Potassium 4.2 mmol/L (3.6-5.0) 08/06/20 07:16 Chloride 104.2 mmol/L (98-107) 08/06/20 07:16 Carbon Dioxide 24 mmol/L (22-30) D 08/06/20 07:16 Anion Gap 15 mmol/L 08/06/20 07:16 BUN 30 mg/dL (9-20) H 08/06/20 07:16 Creatinine 1.6 mg/dL (0.8-1.3) H 08/06/20 07:16 Estimated GFR 53 ml/min 08/06/20 07:16 BUN/Creatinine Ratio 19 % 08/06/20 07:16 Glucose 156 mg/dL (75-100) H 08/06/20 07:16 POC Glucose 146 mg/dL (70-105) H 08/06/20 08:08 Hemoglobin A1c 8.2 % (4-6) H 08/05/20 14:25 Ketones Quantitative Negative (Negative) 08/05/20 02:43 Osmolality 315 Mosm/kg 08/05/20 14:25 Calcium 8.9 mg/dL (8.4-10.2) 08/06/20 07:16 Ferritin 3925.0 ng/mL (30.0-300.0) H 08/05/20 08:04 Lactate Dehydrogenase 468 units/L (91-180) H 08/05/20 08:04 Troponin T < 0.010 ng/mL (0.00-0.029) 08/05/20 01:47 C-Reactive Protein 1.70 mg/dL (0.00-1.30) H 08/05/20 08:04 NT-Pro-B Natriuret Pep 47425 pg/mL (0-900) H 08/05/20 01:47 Procalcitonin 5.72 ng/mL (<0.15) 08/05/20 08:04 Arterial Blood Glucose 589 mg/dL (65-95) H 08/05/20 03:59 Arterial Blood Ionized Calcium 4.6 mg/dL (4.6-5.3) 08/05/20 03:59 Urine Color Straw (Yellow) 08/05/20 04:47 Urine Turbidity Clear (Clear) 08/05/20 04:47 Urine pH 5.0 (5.0-7.0) 08/05/20 04:47 Ur Specific [place] 1.007 (1.003-1.030) 08/05/20 04:47 Urine Protein 30 mg/dl mg/dL (Negative) 08/05/20 04:47 Urine Glucose (UA) >=500 mg/dL (Negative) 08/05/20 04:47 Urine Ketones Neg mg/dL (Negative) 08/05/20 04:47 Urine Blood Neg (Negative) 08/05/20 04:47 Urine Nitrite Neg (Negative) 08/05/20 04:47 Urine Bilirubin Neg (Negative) 08/05/20 04:47 Urine Urobilinogen < 2.0 mg/dL (<2.0) 08/05/20 04:47 Ur Leukocyte Esterase Neg (Negative) 08/05/20 04:47 Urine WBC (Auto) 5.0 /HPF (0.0-6.0) 08/05/20 04:47 Urine RBC (Auto) 4.0 /HPF (0.0-6.0) 08/05/20 04:47 U Epithel Cells (Auto) 1.0 /HPF (0-13.0) 08/05/20 04:47 Urine Mucus Few /HPF 08/05/20 04:47 Coronavirus (PCR) Negative (Negative) 08/05/20 Unknown Duong/IV: Voiding Method Urinal Active Medications - Current Medications Current Medications: Generic Name Dose Route Start Last Admin Trade Name Freq PRN Reason Stop Dose Admin Acetaminophen 650 mg 08/05/20 04:15 Acetaminophen 325 Mg Tab PO Q4H PRN Pain MILD(1-3)/Fever >100.5/SHELL Albuterol/Ipratropium 1 ampul 08/05/20 08:00 08/06/20 09:27 Ipratropium/Albuterol Sulfate 3 Ml Ampul.Neb IH Not Given Q6HRT ISH Aspirin 81 mg 08/05/20 10:00 08/06/20 10:43 Aspirin Ec 81 Mg Tab PO 81 mg DAILY ISH Administration Atorvastatin Calcium 80 mg 08/05/20 22:00 08/05/20 21:42 Atorvastatin 40 Mg Tab PO 80 mg QHS ISH Administration Azithromycin 250 mg 08/05/20 10:00 08/06/20 10:43 Azithromycin 250 Mg Tab PO 08/09/20 10:01 250 mg QDAY ISH Administration Protocol Carvedilol 25 mg 08/06/20 22:00 Carvedilol 25 Mg Tab PO BID ISH Dextrose 50 ml 08/05/20 04:10 Dextrose 50% In Water (25gm) 50 Ml Syringe IV Q30MIN PRN Hypoglycemia Protocol Heparin Sodium (Porcine) 5,000 unit 08/05/20 06:00 08/06/20 06:11 Heparin 5,000 Unit/1 Ml Vial SUB-Q 5,000 unit Q8HR ISH Administration Hydralazine HCl 10 mg 08/05/20 04:19 Hydralazine 20 Mg/1 Ml Inj IV Q6H PRN htn Insulin Glargine 20 units 08/05/20 10:00 08/06/20 10:44 Insulin Glargine 100 Units/Ml SUB-Q 20 units BID ISH Administration Insulin Human Lispro 0 unit 08/05/20 06:00 08/06/20 09:27 Insulin Lispro 100 Unit/Ml SUB-Q Not Given Q6HR [facility] Protocol Morphine Sulfate 2 mg 08/05/20 04:10 Morphine 2 Mg/1 Ml Inj IV Q5MIN PRN Chest Pain unrelieved by NTG Nitroglycerin 0.4 mg 08/05/20 04:10 Nitroglycerin 0.4 Mg Tab Subl SL .Q5MIN PRN Chest Pain Ondansetron HCl 4 mg 08/05/20 04:15 Ondansetron 4 Mg/2 Ml Inj IV Q8H PRN Nausea And Vomiting Pantoprazole Sodium 40 mg 08/05/20 07:30 08/06/20 08:12 Pantoprazole 40 Mg Tab PO 40 mg QDAC ISH Administration Sodium Chloride 10 ml 08/05/20 10:00 08/06/20 10:44 Sodium Chloride 0.9% 10 Ml Flush Syringe IV 10 ml BID ISH Administration Sodium Chloride 10 ml 08/05/20 04:15 Sodium Chloride 0.9% 10 Ml Flush Syringe IV PRN PRN LINE FLUSH Spironolactone 25 mg 08/05/20 10:00 08/06/20 10:43 Spironolactone 25 Mg Tab PO 25 mg DAILY ISH Administration Tamsulosin HCl 0.8 mg 08/05/20 11:00 08/05/20 21:35 Tamsulosin 0.4 Mg Cap PO 0.8 mg QHS ISH Administration Nutrition/Malnutrition Assess - Dietary Evaluation Nutrition/Malnutrition Findings: Nutrition Notes Start: 08/05/20 09:59 Freq: Status: Active Protocol: Document 08/05/20 09:59 DANNY (Rec: 08/05/20 10:15 DANNY [id number]) Nutrition Notes Need for Assessment generated from: MD Order,Education Initial or Follow up Brief Note Current Diagnosis CKD(stage I-IV),Diabetes, Hypertension,Heart Failure Other Pertinent Diagnosis CHF exacerbation, afib with RVR, r/o COVID-19, Hyperglycemia Current Diet Cardiac/Consistent CHO Labs/Tests BG 508 BNP 29798 BUN 27 Cr 1.8 Pertinent Medications Lasix Height 6 ft Weight 118.5 kg [place] Body Weight (kg) 80.90 BMI 35.4 Weight Status Obese Subjective/Other Information RD consulted for diet education. Burn Absent Trauma Absent Minimum of two criteria No Is patient on ventilator? No Is Patient Ambulatory and/or Out of Bed No REE-([facility]-confined to bed) 2420.328 Kcal/Kg value to use for calculation 16 Approximate Energy Requirements Using 1896 kcal/Kg Calculation Used for Recommendations Kcal/kg Additional Notes Pro needs 0.8-0.9g/kg IBW: 65- 73g/day Fluid needs 1ml/kcal Nutrition Intervention Follow-Up By: 08/08/20 Additional Comments F/U: diet education needs (CHO -controlled/Heart healthy), intakes
--- NOTE | 2020-08-06 14:15 | Progress Note ---
Assessment and Plan 64 years old male with history of chronic HFrEF 20%, A. fib (Pradaxa), hypertension, diabetes, chronic kidney disease was brought to the hospital because of difficulty breathing for 2 days. In the emergency room patient is found to have A. fib with RVR at the rate of 150-200. Patient was given amiodarone 150 mg which converted the rhythm to sinus tach. Patient also complained of some nonspecific chest pain 1-2 / 10 associated with mild cough. No other complain. In ED patient O2 sat 98%. Patient denies any known contact with anyone who has tested positive for COVID-19. Also patient glucose is 508, proBNP 43428, BUN 27 creatinine 1.8. Ketone negative. Patient placed on BIPAP. LHC 07/04/19: Right dominant, mild to moderate nonobstructive epicardial CAD, distal left main 20% Echocardiogram 04/30/2020: EF 20%, moderate LVE, moderate RVE, moderate mitral regurgitation Home medication regimen: Aspirin, Lipitor 80 daily, Coreg 25 twice daily, Pradaxa 150 twice daily, Lasix 40 daily, glipizide 10 twice daily, irbesartan 150 mg daily, Metformin 750 mg twice daily, potassium chloride 10 mEq daily, spironolactone 25 mg daily Tele reviewed: AFlutter 90. High HR of [id number]. 5 beat run of VT noted this AM. Strict I's and O's Continue diuresis with Lasix 40mg IV BID and Aldactone. Repeat BMP in am. Initiate Eliquis 5mg BID in setting of Aflutter. Resume home Coreg and initiate Losartan in setting of CMP (EF 20-25%). Office records reviewed, ICD device was interrogated in 12/2019. Stable cardiac status. Nothing further to add from cardiac standpoint. Pt may discharge from cardaic standpoint. F/u in our office with Dr Montiel, within 1-2 weeks of discharge. This pt was seen in conjunction with Dr Hammer who agrees with this assessment and plan of care. - Patient Problems (1) Acute on chronic HFrEF (heart failure with reduced ejection fraction) Current Visit: Yes Status: Acute (2) Atrial fibrillation with RVR Current Visit: Yes Status: Acute (3) HTN (hypertension) Current Visit: Yes Status: Chronic Qualifiers: Hypertension type: essential hypertension Qualified Code(s): I10 - Essential (primary) hypertension (4) Diabetes Current Visit: Yes Status: Chronic Qualifiers: Diabetes mellitus type: other specified (including ANGELO) Diabetes mellitus intermodal dispatcher insulin use: unspecified intermodal dispatcher insulin use status Diabetes mellitus complication status: with unspecified complications (5) CKD (chronic kidney disease) Current Visit: Yes Status: Chronic Subjective Date of service: 08/06/20 Principal diagnosis: Chest Pain Interval history: Pt resting comfortably in bed. Tele reviewed: AFlutter 90. High HR of [id number]. 5 beat run of VT noted this AM. Objective Last Vital Signs Temp 98.2 F 08/06/20 10:58 Pulse 94 H 08/06/20 10:58 Resp 18 08/06/20 10:58 BP 92/51 08/06/20 10:58 Pulse Ox 95 08/06/20 10:58 - Physical Examination HEENT: Positive: PERRL Neck: Positive: neck supple Neuro: Positive: Grossly Intact Abdomen: Positive: Soft, Active Bowel Sounds Skin: Negative: Rash Extremities: Present: edema, warm - Labs and Meds Comprehensive Metabolic Panel 08/06/20 Range/Units 07:16 Sodium 139 (137-145) mmol/L Potassium 4.2 (3.6-5.0) mmol/L Chloride 104.2 (98-107) mmol/L Carbon Dioxide 24 D (22-30) mmol/L BUN 30 H (9-20) mg/dL Creatinine 1.6 H (0.8-1.3) mg/dL Glucose 156 H (75-100) mg/dL Calcium 8.9 (8.4-10.2) mg/dL
[2020-08-06 17:05] LABS: Hematocrit 32.2 % (35.5-45.6); Hemoglobin 10.9 gm/dl (11.8-15.2); Mean Corpuscular HGB Conc 34 % (32-34); Mean Corpuscular Volume 85 fl (84-94); Platelet Count 171 K/mm3 (140-440); Red Blood Count 3.78 M/mm3 (3.65-5.03); Red Cell Distribution Width 17.3 % (13.2-15.2)
[2020-08-06 17:14] LABS: INR 1.28 (0.87-1.13)
[2020-08-06 17:15] LABS: Partial Thromboplastin Time 40.3 Sec. (24.2-36.6)
[2020-08-06] MEDS: MORPHINE 2 MG/1 ML INJ IV PRN (18:32)
[2020-08-06] MEDS: FLUTICASONE PROPIONATE NASAL SPRAY 16 GM NS SCH (19:30)
[2020-08-06] MEDS ORDERED: ALBUTEROL 2.5 MG/3 ML NEBU IH PRN (20:43)
[2020-08-06] MEDS: TAMSULOSIN 0.4 MG CAP PO SCH (21:37)
[2020-08-06] MEDS: APIXABAN 5 MG TAB PO SCH (21:37)
[2020-08-06] MEDS: carvediloL 25 MG TAB PO SCH (21:38)
[2020-08-07 05:33] LABS: Basophils % (Auto) 0.3 % (0.0-1.8); Eosinophils # (Auto) 0.1 K/mm3 (0.0-0.4); Eosinophils % (Auto) 1.1 % (0.0-4.3); Hematocrit 32.9 % (35.5-45.6); Hemoglobin 10.9 gm/dl (11.8-15.2); Lymphocytes # (Auto) 2.2 K/mm3 (1.2-5.4); Lymphocytes % (Auto) 37.3 % (13.4-35.0); Mean Corpuscular HGB Conc 33 % (32-34); Mean Corpuscular Volume 86 fl (84-94); Monocytes # (Auto) 0.4 K/mm3 (0.0-0.8); Monocytes % (Auto) 7.5 % (0.0-7.3); Platelet Count 166 K/mm3 (140-440); Red Blood Count 3.82 M/mm3 (3.65-5.03); Red Cell Distribution Width 17.1 % (13.2-15.2)
[2020-08-07 05:52] LABS: Calcium 8.5 mg/dL (8.4-10.2)
[2020-08-07 05:55] VITALS: BP 105/62
[2020-08-07] MEDS: INSULIN LISPRO 100 UNIT/ML SUB-Q SCH ×3 (06:30→09:27)
[2020-08-07] MEDS: MORPHINE 2 MG/1 ML INJ IV PRN (06:37)
[2020-08-07] MEDS: HEPARIN 5,000 UNIT/1 ML VIAL SUB-Q SCH (06:37)
[2020-08-07] MEDS: INSULIN GLARGINE 100 UNITS/ML SUB-Q SCH (09:28)
[2020-08-07] MEDS: carvediloL 25 MG TAB PO SCH (09:29)
[2020-08-07] MEDS: APIXABAN 5 MG TAB PO SCH (09:29)
[2020-08-07] MEDS: SPIRONOLACTONE 25 MG TAB PO SCH (09:29)
[2020-08-07] MEDS: ASPIRIN EC 81 MG TAB PO SCH (09:29)
[2020-08-07] MEDS: PANTOPRAZOLE 40 MG TAB PO SCH (09:29)
[2020-08-07] MEDS: AZITHROMYCIN 250 MG TAB PO SCH (09:30)
[2020-08-07] MEDS: FLUTICASONE PROPIONATE NASAL SPRAY 16 GM NS SCH (09:31)
[2020-08-07] MEDS ORDERED: LOSARTAN 25 MG TAB PO SCH (10:00)
--- NOTE | 2020-08-07 10:20 | Discharge Summary ---
Providers - Providers Date of Admission: 08/05/20 04:32 Attending physician: SALUD BALLARD MD 08/05/20 04:10 Consult to Physician [CONS] Routine Comment: Consulting Provider: [place] GUO Physician Instructions: Reason For Exam: chf 08/05/20 04:11 Consult to Dietitian/Nutrition [CONS] Routine Physician Instructions: Reason For Exam: Reason for Consult: Diet education 08/05/20 04:15 Consult to Dietitian/Nutrition [CONS] Routine Physician Instructions: Reason For Exam: Reason for Consult: Diet education Primary care physician: JEAN-CLAUDE PEREZ Hospitalization Reason for admission: Congestive heart failure Condition: Stable Hospital course: 64 years old male with history of CHF, A. fib supposed to be on Pradaxa, hypertension, diabetes, chronic kidney disease was brought to the hospital because of difficulty breathing since yesterday night . In the emergency room patient is found to have A. fib with RVR at the rate of 150-200. Patient was given amiodarone 150 mg which converted the rhythm to sinus tach. Patient also complained of some nonspecific chest pain 1-2 10 associated with mild cough. No other complain. O2 sat found 98% patient just received the first Covid vaccine. Patient denies any known contact with anyone who has tested positive for COVID-19. In the emergency room patient is found to have's acute CHF exacerbation. Also patient glucose is 508 proBNP 22419, BUN 27 creatinine 1.8. Ketone negative. Chest x-ray shows no acute finding We will put the patient on BiPAP 08/06: Patient clinically improving, renal function improving, continue fluiod restrictions, agree with downgrade, no evidence of edema noted, will change to PO lasix in the mean time. AWAIT further cardiology input. 08/07: Patient is clinically stable at this point time is stable for discharge discussed with escrow secretary. Is documented that his Coreg is not controlling his A. fib as a result changed to Lopressor 100 mg twice daily. He is to continue his Lasix 40 mg orally at home. I will follow with heart doctor. I also recommended a repeat renal function test patient verbalized understanding. He wants his tamsulosin renewed for him prior to discharge. All other indices are improved. (1) acute on chronic systolic CHF exacerbation (2) Atrial fibrillation with RVR (3) Acute respiratory failure (4) Hyperglycemia (5) Hypertensive emergency (6) Suspected COVID-19 virus infection Ruled out Disposition: DC-01 TO HOME OR SELFCARE Final Discharge Diagnosis (Prints w/discharge instructions): Acute on chronic systolic congestive heart failure Time spent for discharge: 35 mins Core Measure Documentation - Palliative Care Palliative Care/ Comfort Measures: Not Applicable - Core Measures Any of the following diagnoses?: heart failure - Heart Failure Discharge Requirements JEAN/ARB for LVSD if EF <40%: Yes Beta jean at discharge: Yes Exam - Physical Exam Narrative exam: VITAL SIGNS: Reviewed. GENERAL: The patient appears normally developed, Vital signs as documented. HEAD: No signs of head trauma. EYES: Pupils are equal. Extraocular motions intact. EARS: Hearing grossly intact. MOUTH: Oropharynx is normal. NECK: No adenopathy, no JVD. CHEST: Chest with clear breath sounds bilaterally. No wheezes, rales, or rhonchi. CARDIAC: Irregularly irregular rate and rhythm. S1 and S2, without murmurs, gallops, or rubs. VASCULAR: Trace edema. Peripheral pulses normal and equal in all extremities. ABDOMEN: Soft, non tender and non distended. No rebound or guarding, and no masses palpated. Bowel Sounds normal. MUSCULOSKELETAL: Good range of motion of all major joints. Extremities without clubbing, cyanosis. Trace bilateral pedal edema much improved compared to yesterday. NEUROLOGIC EXAM: Alert and oriented x 3 No focal sensory or strength deficits. Speech normal. Follows commands. PSYCHIATRIC: Mood normal. SKIN: detail exam as documented in skin assessment - Constitutional Vitals: Temp Pulse Resp BP Pulse Ox 98.8 F 100 H 16 105/62 96 08/07/20 04:24 08/07/20 04:24 08/07/20 04:24 08/07/20 04:24 08/07/20 04:24 Plan Activity: advance as tolerated, fall precautions Diet: low fat, low salt Special Instructions: record daily weights, record daily BP diary Follow up with: JEAN-CLAUDE PEREZ MD [Primary Care Provider] - 3-5 Days JACKIE FARIAS MD [Staff Physician] - 14 Days MANUEL CUNNINGHAM MD [Staff Physician] - 7 Days Prescriptions: Losartan [Cozaar] 12.5 mg PO QDAY #30 tablet Furosemide [Lasix TAB] 40 mg PO QDAY #30 tablet Metoprolol Tartrate [Lopressor] 100 mg PO BID #60 tablet
[2020-08-07] MEDS ORDERED: METOPROLOL TARTRATE 100 MG TAB PO SCH (12:00)
--- NOTE | 2020-08-07 12:29 | Progress Note ---
Assessment and Plan Pt lying flat in bed comfortably, feeling better. no current cardiac complaints, appears to be nearing/at euvolemia. Convert IV lasix to home PO lasix 40 mg daily. tele reviewed - in AFib HR 100s. Optimize HR - convert coreg to lopressor today and observe HR response on telemetry. Cont home ASA 81, statin, Eliquis, ARB, aldactone. Pending HR is well controlled, pt may discharge from cardiology standpoint this afternoon. Follow up in our [place] office with Dr. Frank Montiel on 08/10/2020 @ 3:00PM. Follow up in our [place] office device clinic for routine AICD check on 08/17/2020 @ 1:00PM. The patient has been seen in conjunction with Dr. Hammer who agrees with the assessment and plan of care. - Patient Problems (1) Acute on chronic HFrEF (heart failure with reduced ejection fraction) Current Visit: Yes Status: Acute (2) NICM (nonischemic cardiomyopathy) Current Visit: Yes Status: Chronic (3) Nonobstructive atherosclerosis of coronary artery Current Visit: Yes Status: Chronic (4) Automatic implantable cardioverter-defibrillator in situ Current Visit: Yes Status: Chronic Plan to address problem: device interrogation done 04/24/2020 in our office showed normal device function, no new episodes. (5) Atrial fibrillation and flutter Current Visit: Yes Status: Chronic (6) HTN (hypertension) Current Visit: Yes Status: Chronic Qualifiers: Hypertension type: essential hypertension Qualified Code(s): I10 - Essential (primary) hypertension (7) Diabetes Current Visit: Yes Status: Chronic Qualifiers: Diabetes mellitus type: other specified (including ANGELO) Diabetes mellitus alf insulin use: unspecified alf insulin use status Diabetes mellitus complication status: with unspecified complications (8) CKD (chronic kidney disease) Current Visit: Yes Status: Chronic Subjective Date of service: 08/07/20 Principal diagnosis: Chest Pain Interval history: pt lying flat in bed comfortably, feeling better. no current cardiac complaints. tele reviewed - in AFib HR 100s. Objective Last Vital Signs Temp 98.8 F 08/07/20 04:24 Pulse 103 H 08/07/20 10:00 Resp 16 08/07/20 04:24 BP 105/62 08/07/20 04:24 Pulse Ox 96 08/07/20 04:24 - Physical Examination General: No Apparent Distress HEENT: Positive: PERRL Neck: Positive: neck supple Cardiac: Positive: irregularly irregular, S1/S2 Lungs: Positive: Decreased Breath Sounds Neuro: Positive: Grossly Intact Abdomen: Positive: Soft, Active Bowel Sounds Skin: Negative: Rash Extremities: Present: warm. Absent: edema - Labs and Meds Coagulation 08/06/20 Range/Units 15:47 PT 16.0 H (12.2-14.9) Sec. INR 1.28 H (0.87-1.13) APTT 40.3 H (24.2-36.6) Sec. CBC 08/06/20 08/07/20 Range/Units 15:47 05:12 WBC 6.4 5.8 (4.5-11.0) K/mm3 RBC 3.78 3.82 (3.65-5.03) M/mm3 Hgb 10.9 L 10.9 L (11.8-15.2) gm/dl Hct 32.2 L 32.9 L (35.5-45.6) % Plt Count 171 166 (140-440) K/mm3 Lymph # (Auto) 2.2 (1.2-5.4) K/mm3 [place] # (Auto) 0.4 (0.0-0.8) K/mm3 Eos # (Auto) 0.1 (0.0-0.4) K/mm3 Baso # (Auto) 0.0 (0.0-0.1) K/mm3 Comprehensive Metabolic Panel 08/06/20 08/07/20 Range/Units 15:47 05:12 Sodium 142 (137-145) mmol/L Potassium 4.2 (3.6-5.0) mmol/L Chloride 105.8 (98-107) mmol/L Carbon Dioxide 25 (22-30) mmol/L BUN 31 H (9-20) mg/dL Creatinine 1.8 H 1.5 H (0.8-1.3) mg/dL Glucose 130 H (75-100) mg/dL Calcium 8.5 (8.4-10.2) mg/dL - Imaging and Cardiology EKG: report reviewed, image reviewed Echo: report reviewed ( 04/30/2020: EF 20%, moderate LVE, moderate RVE, moderate mitral regurgitation) Cardiac cath: report reviewed (07/04/19: Right dominant, mild to moderate nonobstructive epicardial CAD, distal left main 20%) - Telemetry EKG Rhythm: Atrial Fibrillation
[2020-08-08] MEDS ORDERED: FUROSEMIDE 40 MG TAB PO SCH (10:00)
--- NOTE | 2020-08-09 11:29 | Electrocardiograph Report ---
[facility] Test Date: 2020-08-05 Test Time: 01:44:47 Pat Name: GARRISON CONNELL Department: Room: A487 Gender: M [place]: VEL : 1955 Requested By: MALDONADO RICHARDSON Order Number: [id number] Reading MD: Jr Hammer Measurements Intervals [place] Rate: 128 P: -82 RI: 162 QRS: -47 QRSD: 109 T: 135 QT: 307 QTc: 449 Interpretive Statements Sinus or ectopic atrial tachycardia Left axis deviation Repol abnrm suggests ischemia, diffuse leads No previous ECG available for comparison Electronically Signed On 08-09-2020 11:29:36 EDT by Jr Hammer
== END 2020-08-07 12:48 | disposition home or self-care (01) | DRG 291 ==
LOC: ED 01:36 → CC1 04:32 → 4A 08-06 08:39
PROVIDERS: ADMIT Hospitalist; ATTEND Internal Medicine
PROC: 5A09357 Assistance with Respiratory Ventilation, Less than 24 Consecutive Hours, Continuous Positive Airway Pressure (ICD-10-PCS; principal; 2020-08-05)
PROC: 4A033R1 Measurement of Arterial Saturation, Peripheral, Percutaneous Approach (ICD-10-PCS; 2020-08-05)
DX: I13.0 Hypertensive heart and chronic kidney disease with heart failure and stage 1 through stage 4 chronic kidney disease, or unspecified chronic kidney disease (principal); I50.23 Acute on chronic systolic (congestive) heart failure; J96.00 Acute respiratory failure, unspecified whether with hypoxia or hypercapnia; N17.0 Acute kidney failure with tubular necrosis; I16.1 Hypertensive emergency; I48.20 Chronic atrial fibrillation, unspecified; N18.9 Chronic kidney disease, unspecified; E11.22 Type 2 diabetes mellitus with diabetic chronic kidney disease; N40.0 Benign prostatic hyperplasia without lower urinary tract symptoms; E11.65 Type 2 diabetes mellitus with hyperglycemia; I25.10 Atherosclerotic heart disease of native coronary artery without angina pectoris; I42.8 Other cardiomyopathies; J45.909 Unspecified asthma, uncomplicated; M47.816 Spondylosis without myelopathy or radiculopathy, lumbar region; Z79.01 Long term (current) use of anticoagulants; Z88.0 Allergy status to penicillin; Z79.84 Long term (current) use of oral hypoglycemic drugs; Z79.899 Other long term (current) drug therapy; Z20.822 Contact with and (suspected) exposure to COVID-19; Z95.810 Presence of automatic (implantable) cardiac defibrillator
CPT/HCPCS: 36415; 71045; 80048; 81001; 82010; 82565; 82728; 82803; 82805; 82962; 83036; 83615; 83880; 83930; 84145; 84484; 85025; 85027; 85379; 85610; 85730; 86140; 93005; 93306; 94640; 96361; 96365; 96366; 96367; 96375; 96376; G0378; A9270-GY; J0360; J1644; J1815; J1940; J2270; J7030; J7050; U0003

== ENCOUNTER 2020-09-14 07:39 | Emergency (ER) | payer MEDICARE ==
[2020-09-14 08:19] VITALS: BP 118/88
--- NOTE | 2020-09-14 08:23 | Event Note ---
ED Screening Note Date of service: 09/14/20 Time: 08:22 ED Screening Note: Patient complains of intermittent chest pain for the past month since being discharged from the ICU here States pain got worse today with some shortness of breath History of a flutter, diabetes, and hypertension This initial assessment/diagnostic orders/clinical plan/treatment(s) is/are subject to change based on patients health status, clinical progression and re- assessment by fellow clinical providers in the ED. Further treatment and workup at subsequent clinical providers discretion. Patient/guardian urged not to elope from the ED as their condition may be serious if not clinically assessed and managed. Initial orders include: Labs Chest x-ray EKG shows a flutter
[2020-09-14 08:44] LABS: Basophils % (Auto) 0.1 % (0.0-1.8); Eosinophils # (Auto) 0.1 K/mm3 (0.0-0.4); Eosinophils % (Auto) 1.4 % (0.0-4.3); Hematocrit 36.7 % (35.5-45.6); Hemoglobin 12.6 gm/dl (11.8-15.2); Lymphocytes # (Auto) 1.3 K/mm3 (1.2-5.4); Lymphocytes % (Auto) 28.2 % (13.4-35.0); Mean Corpuscular HGB Conc 34 % (32-34); Mean Corpuscular Volume 85 fl (84-94); Monocytes # (Auto) 0.3 K/mm3 (0.0-0.8); Monocytes % (Auto) 7.4 % (0.0-7.3); Platelet Count 189 K/mm3 (140-440); Red Blood Count 4.29 M/mm3 (3.65-5.03); Red Cell Distribution Width 15.3 % (13.2-15.2)
--- NOTE | 2020-09-14 09:03 | XRay Report ---
CHEST 2 VIEWS INDICATION / CLINICAL INFORMATION: chest pain. COMPARISON: 08/05/2020 FINDINGS: SUPPORT DEVICES: Stable, satisfactory device positioning. HEART / MEDIASTINUM: Stable. LUNGS / PLEURA: No significant pulmonary or pleural abnormality. No pneumothorax. ADDITIONAL FINDINGS: No significant additional findings. IMPRESSION: 1. No acute findings. Signer Name: Albert Ramirez MD Signed: 09/14/2020 8:58 AM Workstation Name: [id number]
[2020-09-14 09:12] LABS: Alanine Aminotransferase 13 units/L (7-56); Albumin 4.1 g/dL (3.9-5); BUN/Creatinine Ratio 19; Blood Urea Nitrogen 25 mg/dL (9-20); Calcium 9.4 mg/dL (8.4-10.2); Hemolysis Index 4
--- NOTE | 2020-09-14 10:54 | Electrocardiograph Report ---
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
== END 2020-09-14 09:29 ==
LOC: ED 07:39
DX: R07.89 Other chest pain (principal); R06.02 Shortness of breath; Z53.21 Procedure and treatment not carried out due to patient leaving prior to being seen by health care provider
CPT/HCPCS: 36415; 71046; 80053; 83735; 84484; 85025; 93005

== ENCOUNTER 2020-10-15 07:59 | Outpatient (CLI) | payer MEDICARE | END 2020-10-15 08:00 | disposition home or self-care (01) | LOC: WOUND 07:59 | CPT/HCPCS: 99214; G0463; G0463-25 ==